=== PATIENT | female | born 1950 | race Caucasian/White ===

== ENCOUNTER 2017-04-17 08:37 | Inpatient (IN) | payer OTHER ==
--- NOTE | 2017-04-17 08:42 | EDPHY ---
H & P Time Seen by Provider: 04/17/17 08:42 HPI/ROS: Chief complaint. Stroke activation HPI. 66-year-old female here by EMS with a stroke activation. Affect approximately 1 hr ago the patient began have some increased confusion and maybe some repetitive questioning. She has tingling to the right arm. EMS felt that she had arm weakness. No headache, change in her vision, chest discomfort, shortness of breath, abdominal pain. No symptoms on the left side. She has had tingling to the right upper extremity for more than 1 year. ROS Constitutional. no fever/chills, no weakness Eyes. no problems with vision ENT. no sore throat, no nasal drainage Cardiovascular. no chest pain Respiratory. no shortness of breath, no cough Abdominal. no abdominal pain, no nausea/vomiting, no diarrhea . no problems urinating MS. no calf pain/swelling, no neck/back pain, no joint pain Skin. no rash Lymph. no swollen glands Neuro. Tingling right now arm and some word-finding difficulty Past Medical/Surgical History: Patient denies past medical history Social History: Single, nonsmoker, no alcohol Physical Exam: General Appearance: Alert well-developed female mild distress vital signs show initial blood pressure of approximately 230/130 Eyes: Pupils equal and round no pallor or injection. ENT, Mouth: Mucous membranes are moist. Respiratory: There are no retractions, lungs are clear to auscultation. Cardiovascular: Regular rate and rhythm. Gastrointestinal: Abdomen is soft and nontender, no masses, bowel sounds normal. Neurological: Awake and alert, sensory and motor exams grossly normal. Speech is normal. Cranial nerves are normal. There is no pronator drift. Finger-to- nose and [id number] are intact bilaterally Skin: Warm and dry, no rashes. Musculoskeletal: Neck is supple nontender. Extremities symmetrical, full range of motion. Psychiatric: Patient is oriented X 3, there is no agitation. Constitutional: Initial Vital Signs Temperature (C) 36.8 C 04/17/17 08:37 Heart Rate 90 04/17/17 08:37 Respiratory Rate 16 04/17/17 08:37 Blood Pressure 230/135 H 04/17/17 08:37 O2 Sat (%) 91 L 04/17/17 08:37 O2 Delivery Mode Room Air Allergies/Adverse Reactions: No Known Allergies Allergy (Verified 04/17/17 10:17) Home Medications: Medication Instructions Recorded Excedrin Migraine Geltab 2 tab PO DAILY 04/17/17 Medical Decision Making - Diagnostics EKG Interpretation: EKG interpreted by me shows normal sinus rhythm normal interval. Left axis deviation. Right bundle and left anterior fascicular blocks. LVH by voltage. No significant ST elevation or depression. No arrhythmia. The rate is 68 Imaging Results: Imaging Impressions Chest X-Ray 04/17/17 08:40 Impression: Cardiomegaly, which has increased over the interval. Evidence of atherosclerotic change in the thoracic aorta. Head CT 04/17/17 08:40 Impression: 1. No significant intracranial abnormality seen. If symptoms worsen, additional imaging may be necessary. Findings discussed with Andrez Fields M.D. at 0846 hour, 04/17/2017. Noncontrast head shows no intracranial bleeding One-view chest x-ray shows cardiomegaly but no evidence for pneumonia or pneumothorax Subsequently the patient has angio studies of head and neck which showed no obstruction Procedures: IV normal saline, monitor ED Course/Re-evaluation: Patient is seen immediately by me. She has left on the stretcher and after my initial exam and history she is taken to CT On return the patient continues to be hypertensive. She is given labetalol IV 20 mg bolus and then a drip. Gradual and good resolution of her hypertension. I consulted and discussed the case with [facility]--Dr. Camp-- who also examined the patient using the robot. The feel no tPA at this point in time and recommend the further study of angiogram of head and neck. Serial exams the patient's symptoms are decreasing with her resolving blood pressure. She tells me now that she has also had continuing numbness and tingling to her right upper extremity for more than 1 year I consulted and discussed the case with Dr. Vu, hospitalist, who agrees to the admission Patient and I have discussed imaging and lab results. We discussed treatment plan including recommendation for admission. She expresses understanding and agreement Differential Diagnosis: Considered intracranial bleeding, TIA, CVA. This is likely more hypertensive crisis causing her symptoms. Symptoms are resolving as blood pressure is controlled Critical Care Time: Critical care time exclusive procedures 40 min - Data Points Laboratory Results: Laboratory Results 04/17/17 08:37 04/17/17 08:37 02/04/17/17 04/17/17 08:37 08:37 08:37 WBC 8.46 10^3/uL 10^3/uL (3.80-9.50) RBC 5.36 10^6/uL H 10^6/uL (4.18-5.33) Hgb 17.0 g/dL H g/dL (12.6-16.3) POC Hgb Hct 50.0 % H % (38.0-47.0) POC Hct MCV 93.3 fL fL (81.5-99.8) MCH 31.7 pg pg (27.9-34.1) MCHC 34.0 g/dL g/dL (32.4-36.7) RDW 12.7 % % (11.5-15.2) Plt Count 228 10^3/uL 10^3/uL (150-400) MPV 9.7 fL fL (8.7-11.7) Neut % (Auto) 72.3 % % (39.3-74.2) Lymph % (Auto) 17.7 % % (15.0-45.0) [place] % (Auto) 7.8 % % (4.5-13.0) Eos % (Auto) 0.8 % % (0.6-7.6) Baso % (Auto) 0.9 % % (0.3-1.7) Nucleat RBC Rel Count 0.0 % % (0.0-0.2) Absolute Neuts (auto) 6.11 10^3/uL 10^3/uL (1.70-6.50) Absolute Lymphs (auto) 1.50 10^3/uL 10^3/uL (1.00-3.00) Absolute Monos (auto) 0.66 10^3/uL 10^3/uL (0.30-0.80) Absolute Eos (auto) 0.07 10^3/uL 10^3/uL (0.03-0.40) Absolute Basos (auto) 0.08 10^3/uL 10^3/uL (0.02-0.10) Absolute Nucleated RBC 0.00 10^3/uL 10^3/uL (0-0.01) Immature Gran % 0.5 % % (0.0-1.1) Immature Gran # 0.04 10^3/uL 10^3/uL (0.00-0.10) PT 11.8 SEC L SEC (12.0-15.0) INR 0.85 (0.83-1.16) APTT 27.3 SEC SEC (23.0-38.0) POC Sodium Sodium 141 mEq/L mEq/L (135-145) POC Potassium Potassium 4.2 mEq/L mEq/L (3.5-5.2) POC Chloride Chloride 104 mEq/L mEq/L (97-110) Carbon Dioxide 23 mEq/l mEq/l (22-31) Anion Gap 14 mEq/L mEq/L (8-16) POC BUN BUN 16 mg/dL mg/dL (7-23) Creatinine 0.8 mg/dL mg/dL (0.6-1.0) POC Creatinine Estimated GFR > 60 Glucose 98 mg/dL mg/dL (70-100) POC Glucose Calcium 10.4 mg/dL mg/dL (8.5-10.4) Troponin I 0.048 ng/mL H ng/mL (0.000-0.034) 04/17/17 08:33 WBC RBC Hgb POC Hgb 17.7 gm/dL H gm/dL (12.6-16.3) Hct POC Hct 52 % H % (38-47) MCV MCH MCHC RDW Plt Count MPV Neut % (Auto) Lymph % (Auto) [place] % (Auto) Eos % (Auto) Baso % (Auto) Nucleat RBC Rel Count Absolute Neuts (auto) Absolute Lymphs (auto) Absolute Monos (auto) Absolute Eos (auto) Absolute Basos (auto) Absolute Nucleated RBC Immature Gran % Immature Gran # PT INR APTT POC Sodium 141 mEq/L mEq/L (135-145) Sodium POC Potassium 4.0 mEq/L mEq/L (3.3-5.0) Potassium POC Chloride 104 mEq/L mEq/L (97-110) Chloride Carbon Dioxide Anion Gap POC BUN 18 mg/dL mg/dL (7-23) BUN Creatinine POC Creatinine 0.9 mg/dL mg/dL (0.6-1.0) Estimated GFR Glucose POC Glucose 101 mg/dL H mg/dL (70-100) Calcium Troponin I Medications Given: Nicardipine/Sodium Chloride (Cardene 0.1 Mg/Ml (Premix)) 200 mls @ 0 mls/hr IV CONT ENA; Titrate PRN Reason: Protocol Stop: 10/14/17 12:29 Last Admin: 04/17/17 12:10 Dose: 200 mls Nicotine (Nicoderm Cq) 14 mg TD DAILY ENA Stop: 10/14/17 15:29 Last Admin: 04/17/17 15:24 Dose: 14 mg Discontinued Medications Aspirin (Aspirin) 324 mg PO EDNOW ONE Stop: 04/17/17 08:52 Last Admin: 04/17/17 09:31 Dose: 324 mg Labetalol HCl 200 mg/ Dextrose 200 mls @ 0 mls/hr IV CONT ENA; As Directed PRN Reason: Protocol Stop: 10/14/17 08:59 Last Admin: 04/17/17 10:01 Dose: 200 mls Labetalol HCl (Trandate Injection) 20 mg IVP EDNOW ONE Stop: 04/17/17 08:52 Last Admin: 04/17/17 09:13 Dose: 100 mg Lorazepam (Ativan Injection) 1 mg IV ONCE ONE Stop: 04/17/17 12:46 Last Admin: 04/17/17 13:56 Dose: 1 mg Point of Care Test Results: 04/17/17 08:33 POC Sodium 141 POC Potassium 4.0 POC Chloride 104 POC BUN 18 POC Creatinine 0.9 POC Glucose 101 H Departure - Departure Disposition: [facility] Acute Clinical Impression: Malignant hypertensive urgency Condition: Fair
[2017-04-17] MEDS ORDERED: LABETALOL HCL 5 MG/ML 20 ML MDV IVP ONE (08:51)
[2017-04-17] MEDS ORDERED: ASPIRIN 81 MG CHEWABLE TAB PO ONE (08:51)
[2017-04-17 08:58] LABS: PLATELET COUNT 228 10^3/uL (150-400)
[2017-04-17] MEDS ORDERED: LABETALOL HCL 200 MG in D5W 200 ML IV SCH (09:00)
[2017-04-17 09:11] LABS: INR 0.85 (0.83-1.16); PROTIME(PATIENT) 11.8 SEC (12.0-15.0)
--- NOTE | 2017-04-17 09:35 | CPEKG ---
Heart Rate: 68 RR Interval: 882 P-R Interval: 180 QRSD Interval: 128 QT Interval: 464 QTC Interval: 494 P [place]: 67 QRS [place]: -79 T Wave [place]: 53 EKG Severity - ABNORMAL ECG - EKG Impression: SINUS RHYTHM EKG Impression: PROBABLE LEFT ATRIAL ABNORMALITY EKG Impression: RBBB AND LAFB EKG Impression: LEFT VENTRICULAR HYPERTROPHY Electronically Signed By: Andrez Fields 17-Apr-2017 14:36:31
[2017-04-17] MEDS ORDERED: IOPAMIDOL (ISOVUE 370) 100 ML BTL IV ONE (09:37)
--- NOTE | 2017-04-17 11:50 | ASMTCMCOM ---
CM Note CM Note Notes: ED RN Torin requested this SW to call the pt's work to notify them of her admission. This SW spoke to Ritu oJhnson in human resources at [facility]. Ms. Johnson was informed of absence for today and tomorrow and she will notify the pt's cost estimating manager. DC plan TBD CM to follow. Date Signed: 04/17/2017 11:49 AM Electronically Signed By:Stuart Puentes LCSW
[2017-04-17] MEDS ORDERED: niCARdipine/NACL 200 ML IV SCH (12:30)
[2017-04-17] MEDS ORDERED: LORazepam 2 MG/ML INJ IV ONE (12:45)
[2017-04-17] MEDS ORDERED: LABETALOL HCL 5 MG/ML 20 ML MDV IVP PRN (12:53)
[2017-04-17] MEDS ORDERED: traMADol 50 MG TAB PO PRN (12:57)
--- NOTE | 2017-04-17 13:15 | ECHO ---
[email or web address] [address] [address] Main: [phone] Fax: Transthoracic Echocardiogram Name: DEL GIRALDO MR#: [id number] Study Date: 04/17/2017 Study Time: 11:40 AM Date of : 1950 Age: 66 year(s) Height: 175.3 cm (69 in.) Weight: 63.5 kg (140 lb.) BSA: 1.78 m2 Gender: Female Examination: Echo with Agitated Saline Indication: Stroke Alert Image Quality: Contrast: Requested by: Lorie Vu BP: 179 mmHg/103 mmHg Heart Rate: Rhythm: Indication: Stroke Alert Procedure Staff Knitting Machine Operator: Jose Alfredo Lovelace RDCS Reading Physician: James Kan MD Requesting Provider: Conclusions: Severe concentric LV hypertrophy. EF is 68 %. Diastolic dysfunction is present. . The left atrium is severely dilated. An agitated saline study was performed and was negative for intracardiac shunting. Mild mitral valve regurgitation is present. 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 Moderate aortic valve regurgitation is present. The pulmonary artery pressure is mild to moderately increased. Measurements: Chambers Valvular Assessment AV/MV Valvular Assessment TV/PV Normal Normal Normal Name Value Range Name Value Range Name Value Range IVSd (2D): 1.6 cm (0.6 cm-1.1 AV meanP mmHg ( - ) TR Vmax: 3.12 mm/s ( - ) cm) LVOT Vmax: 1.11 m/s (0.7 m/s-1.1 TR PGmax: 39 mmHg ( - ) LVDd (2D): 4.0 cm (3.9 cm-5.3 m/s) syst. PAP: 49 mmHg ( - ) cm) LIANG (VTI): 2.3 cm ( - ) PV Vmax: 1.09 m/s (0.6 m/s-0.9 LVDs (2D): 2.5 cm (2.1 cm-4 MV E Vmax: 1.14 m/s ( - ) m/s) cm) MV A Vmax: 0.96 m/s ( - ) PV PGmax: 5 mmHg ( - ) LVPWd (2D): 1.5 cm ( - ) MV E/A: 1.19 ( - ) LVOTd 2.0 cm 2.0 cm mm MV meanP mmHg ( - ) LVEF (2D): 68 (>=54 %) MVA (Vmax): 1.8 m/s ( - ) Continued Measurements: Chambers Valvular Assessment AV/MV Valvular Assessment TV/PV Name Value Name Value Name Value LADs Lon.4 cm MV Annulus: 4.3 cm CVP (est.): 10 mmHg Patient: DEL GIRALDO Study Date: 04/17/2017 Page 1 of 2 11:40 AM LA Area: 33.0 cm2 MV E/E' Septal: 33.40 LA Volume: 99 ml MV E/E' Lateral: 24.40 LA Volume Index: 55.6 ml/m2 MV VTI: 45.90 cm MR ERO: 0.190 cm2 MR PISA radius: 7 mm MR Reg. Volume: 35 ml MR Reg. Fraction: 5 % AR Vmax: 5.22 cm/s AR ERO: 0.230 cm2 AR PISA radius: 0.7 cm AR Reg. Volume: 66.0 ml AR Reg. Fraction: 80 % AR VTI: 289.0 cm Findings: Left Ventricle: Normal size left ventricle. Severe concentric LV hypertrophy. Normal global systolic LV function. EF is 68 %. No regional wall motion abnormality. Diastolic dysfunction is present. . No LVOT obstruction. Right Ventricle: Normal size right ventricle. Left Atrium: The left atrium is severely dilated. An agitated saline study was performed and was negative for intracardiac shunting. The LA index is 72.5 ml/m2. Right Atrium: The right atrium is moderately dilated. Mitral Valve: Mild mitral valve regurgitation is present. 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 Aortic Valve: The aortic valve is tri-leaflet. Mild aortic cusp calcification is noted. Moderate aortic valve regurgitation is present. Tricuspid Valve: Mild tricuspid regurgitation is present. The pulmonary artery pressure is mild to moderately increased. Pulmonic Valve: The pulmonic valve is normal in appearance and function. Aorta: The aorta is normal. Pericardium: Trivial pericardial effusion. (No Signature Object) Patient: DEL GIRALDO Study Date: 04/17/2017 Page 2 of 2 11:40 AM [id number]
--- NOTE | 2017-04-17 13:34 | GHP ---
[f rep st] HISTORY AND PHYSICAL DATE OF ADMISSION: 04/17/2017 CHIEF COMPLAINT: Right eye blurriness. HISTORY OF PRESENT ILLNESS: The patient is a 66-year-old female who has not seen a primary care doct or for many years. Last time she had her blood pressure checked, however, it was very low. She now presents to the hospital after developing acute onset of right eye blurriness. She went to work this morning at 5:15 a.m. per her usual routine. At 5:45 a.m., she noticed her right eye was blurry. Hortencia chavarria describes it appearing like a black and white kaleidoscope. She persisted through her daily activi ties at work and a couple hours later developed severe dizziness and shortness of breath which was no ticed by her coworkers, and she was brought to the nurse's station at work. EMS was called. She renetta cribes acute memory difficulties more than any true aphasia. She feels mostly back to normal now wit h minimal ongoing symptoms including resolution of the right eye blurriness. She does describe new r ight leg numbness for the last 1 week, and also about 1 year ago her right hand went numb for unclear reasons, and she never sought evaluation. Both the right leg and right hand weakness persist at thi s time. PAST MEDICAL HISTORY: Negative. PAST SURGICAL HISTORY: Tubal ligation, tonsillectomy. MEDICATIONS: She takes 2 Excedrin every morning for heart health. She denies a history of headaches . ALLERGIES: No known drug allergies. SOCIAL HISTORY: She smokes a half a pack per day. She drinks 3 shots of vodka every day after work. She lives alone. REVIEW OF SYSTEMS: Complete review of systems obtained. Review of systems is negative regarding con stitutional, HEENT, GI, pulmonary, cardiovascular, , hematology, skin, musculoskeletal, endocrine, psych except for positives and negatives as noted in HPI. FAMILY HISTORY: Her father of colon cancer at age 85. She has not had a colonoscopy. Mom of old age. PHYSICAL EXAMINATION: GENERAL: Well-developed, well-nourished female, in no acute distress. VITAL SIGNS: Temperature 36.8, pulse 70, blood pressure 230/135, saturating 91% on room air. EYES: Lizbeth l conjunctivae. Pupils react to light. ENT: Normal ears and nose. Hearing intact. She has very p oor dentition. Oropharynx moist. NECK: Trachea midline. No thyromegaly. CHEST: Normal respirato ry effort. Lungs clear to auscultation bilaterally. CARDIOVASCULAR: Regular rhythm. No murmur. N o lower extremity edema. ABDOMEN: Soft, nontender. No hepatosplenomegaly. SKIN: Warm, dry, intac t. No rash. MUSCULOSKELETAL: No cyanosis or clubbing. Strength 5/5 upper and lower extremities. NEURO: Cranial nerves intact. Decreased sensation to the right upper and right lower extremities. PSYCH: Alert and oriented x3. Normal affect. Normal judgment. Normal memory. Her speech is lizbeth l at this time. LABORATORY DATA: White count 8.46, hematocrit 50.0, platelets 228. Sodium 141, potassium 4.2, chlor bereket 104, bicarb 23, BUN 16, creatinine 0.8, glucose 98. Troponin 0.048. INR 0.85. EKG reviewed by me. My personal interpretation is normal sinus rhythm with LVH. Chest x-ray shows cardiomegaly. Head CT is negative. CT angiogram of the head and neck is negative. ASSESSMENT/PLAN: 1. Transient ischemic attack versus stroke versus hypertensive encephalopathy. Will check an MRI of the brain. If it is positive for stroke, that would indicate she needs a higher blood pressure goal acutely. Will also check an echocardiogram and lipid panel. Continue daily aspirin and ask Neurolo gy to see her in the morning. 2. Hypertensive urgency. As above, we will better understand her acute blood pressure goals once we understand her status regarding acute stroke. She was put on IV labetalol drip in the emergency [facility] m, which is now off. Blood pressure is adequate at this time. Will initiate further IV antihyperten sives per the stroke protocol with higher blood pressure goals; however, if we get a negative MRI for stroke we can be more aggressive regarding lowering her blood pressure over the next 24-48 hours. 3. Tobacco dependence. Will place on nicotine patch. 4. Troponin elevation. This is very mild. This is clearly due to strain from her uncontrolled hype rtension. CODE STATUS: Full. ADMISSION STATUS: I will admit to inpatient as she is medically complex. Anticipate greater than 2 midnights required for stabilization. DVT PROPHYLAXIS: She is moderate risk. Will place on subcu Lovenox. /[id number]/MODL
--- NOTE | 2017-04-17 13:58 | PDMN ---
Medical Necessity Medical necessity: Patient meets inpatient criteria per physician note and [facility] [place] M -197 Hypertension (severe hypertension: B/P 230/135; acute onset R eye blurriness, followed by severe dizziness and shortness of breath; persistent numbness of R exts; stroke alerted called; awaiting MRI results to determine poss TIA vs CVA vs hypertensive encephalopathy; started on Cardene IV gtt; anticipated LOS > 2 midnights for ongoing management of hypertension.)
[2017-04-17] MEDS: NICOTINE 14 MG/24 HR PATCH TD SCH (15:24)
[2017-04-17] MEDS: CLOPIDOGREL BISULFATE 75 MG TAB PO SCH (16:55)
[2017-04-17] MEDS ORDERED: LORazepam 1 MG TAB PO PRN (17:02)
--- NOTE | 2017-04-17 20:44 | CPEKG ---
Heart Rate: 65 RR Interval: 923 P-R Interval: 160 QRSD Interval: 132 QT Interval: 476 QTC Interval: 495 P [place]: 62 QRS [place]: -79 T Wave [place]: 64 EKG Severity - ABNORMAL ECG - EKG Impression: SINUS RHYTHM EKG Impression: PROBABLE LEFT ATRIAL ABNORMALITY EKG Impression: RBBB AND LAFB EKG Impression: LEFT VENTRICULAR HYPERTROPHY Electronically Signed By: Nate Babb 18-Apr-2017 07:26:44
--- NOTE | 2017-04-17 21:41 | GCON ---
[f rep st] CONSULTATION NEUROLOGY CONSULTATION DATE OF CONSULTATION: 04/17/2017 REFERRING PHYSICIAN: Lorie Vu MD CHIEF COMPLAINT: Stroke alert. HISTORY OF PRESENT ILLNESS: The patient is a very pleasant 66-year-old lady who has not seen a doctor in many years by her own report. She takes a baby aspirin daily, but otherwise takes no prescription medications, and does not have regular medical care. Her mother has hypertension. She has had chronic right arm numbness for a year and may have had some additional numbness in her right lower extremity in the last few days. She came in today for headache, feeling confused, along with a general malaise. There was no chest pain. No acute focal symptoms she complained about, but EMS felt like there was some focality when they evaluated her. Therefore, stroke alert was called. The patient was found to have a blood pressure of 230/130 in the ER in a hypertensive crisis. Head CT without contrast was negative. CT of the head and neck showed no large or a small vessel intraluminal thrombosis or acute changes. There is no significant carotid disease. MRI brain revealed 3 tiny, acute, diffusion-weighted infarcts in the subcortical right parietal matter and 1 each in the cerebellar hemispheres. Her blood pressure is coming down now in the ICU with medications. She complains of no acute changes or symptoms now. REVIEW OF SYSTEMS: A 10-point review of systems was done; only pertinent to the HPI. PAST MEDICAL HISTORY, SOCIAL HISTORY, FAMILY HISTORY, ALLERGIES: Please see Dr. Vu's H and P. PHYSICAL EXAM: VITAL SIGNS: Blood pressure 156/90, temperature is 36.7, pulse is 60s and regular. GENERAL: In no acute distress. A very pleasant lady. HEENT: Poor dentition. NEUROLOGICAL EXAMINATION: HIGHER MENTAL FUNCTION: She is awake and alert. She is lucid. She names 5/5, follows commands 5/5,and repeats 5/5. No aphasia. CRANIAL NERVES: Exam of 2 through 7 and 12 is normal. MOTOR: Normal strength throughout. SENSORY: Subjectively normal to light touch in all 4 extremities. IMPRESSION AND PLAN: 1. Hypertensive emergency. 2. Diffusion-weighted abnormalities on MRI brain (stroke) The differential diagnosis for the patient's 3 tiny, acute strokes include a cardioembolic shower versus end-organ damage from a hypertensive emergency. I discussed this at length with the patient and the hospital team. Going forward , I recommend a smooth reduction of blood pressure while here in the hospital. We will treat if her systolics go above 180 this evening, and treat further tomorrow. I have switched her from aspirin to Plavix 75 mg daily. We discussed potential risks, benefits and alternatives of Plavix therapy including bleeding and bruising. The patient had an echocardiogram, which was fairly abnormal, showing severe concentric left ventricular hypertrophy and severe dilation of the left atrium and moderate dilation of the right atrium. She denies a previous history of atrial fibrillation, but she does not have regular medical care, as mentioned above. Therefore, considering the primary stroke mechanisms, we will control blood pressure, have her on at anti-platelet therapy and statin therapy. Further, we will screen her for atrial fibrillation while on telemetry in the hospital. If we do not see paroxysmal atrial fibrillation here in the hospital, then I would recommend outpatient monitoring for paroxysmal atrial fibrillation with either a 30-day event monitor versus implantable cardiac cath technologist. All of these recommendations were discussed at length. Seventy total minutes floor time reviewing testing, imaging, coordination of care and direct counseling with the patient. We also discussed the possible discussed the patient's alcohol intake and the recommendation to observe for any withdrawal symptoms. Thank you for this consultation. /[id number]/MODL MTDD
[2017-04-18 04:38] LABS: PLATELET COUNT 147 10^3/uL (150-400)
[2017-04-18] MEDS: THIAMINE HCL 500 MG in NS 500 ML IV SCH (08:32)
[2017-04-18] MEDS: NICOTINE 14 MG/24 HR PATCH TD SCH (08:32)
[2017-04-18] MEDS: CLOPIDOGREL BISULFATE 75 MG TAB PO SCH (08:32)
[2017-04-18] MEDS: ENOXAPARIN 40 MG/0.4 ML SYR SC SCH (08:32)
[2017-04-18] MEDS: LISINOPRIL 10 MG TAB PO SCH ×2 (08:57→20:05)
[2017-04-18] MEDS ORDERED: ASPIRIN 325 MG TAB PO SCH (09:00)
[2017-04-18] MEDS ORDERED: NICOTINE 14 MG/24 HR PATCH TD SCH (09:00)
[2017-04-18] MEDS ORDERED: LISINOPRIL 10 MG TAB PO SCH (09:00)
--- NOTE | 2017-04-18 11:02 | NEUROPROG ---
Assessment: 1. Hypertensive emergency 2. three tiny, acute cerebral infarctions 3. Chronic right distal upper extremity numbness, likely median neuropathy at the wrist The patient has done well overnight. Her blood pressures are staying within parameters. She will be further treated today for her high blood pressure. Today we discussed her chronic right upper extremity numbness and her previous diagnosis of carpal tunnel syndrome. Her current exam is consistent with chronic, moderately severe carpal tunnel syndrome on the right. I counseled her as such. This is a chronic problem present greater than 1 year. In regards to her hypertensive emergency and small acute strokes on MRI brain, we discussed the differential diagnosis is hypertensive emergency with end- organ dysfunction (strokes) versus cardioembolic. There has been no atrial fibrillation overnight on telemetry according to Nursing. She understands and appreciate my counseling. Going forward, I recommend the followin. When the patient discharges home she should be on antihypertensive medication , Plavix 75 mg daily and statin medication daily. 2. She should have close PCP follow-up to manage her multiple vascular comorbidities and encouraged her again regarding smoking cessation and monitor her alcohol intake. She is agreeable. 3. I understand cardiology will be seeing years inpatient. Certainly based on her abnormal echocardiogram, she will need some type of prolonged monitoring to screen for paroxysmal atrial fibrillation. I defer to my colleagues in Cardiology whether they would like to begin with a 30 day event monitor versus an implantable director non profit ([employer]) 4. We will follow up with the patient in 1 month to review her neurovascular care and her carpal tunnel syndrome. We can order an EMG/nerve conduction studies at that time. No further recommendations. 35 total minutes floor time; reviewing history, labs , direct counseling and coordination of care. We will continue to follow the patient p.r.n. Please do not hesitate to call if there are any questions or changes in neurologic status with this very pleasant patient. Thank you for this consultation. Subjective: No new symptoms Objective: Vital Signs Temp Pulse Resp BP Pulse Ox 36.8 C 64 20 175/114 H 94 04/18/17 07:54 04/18/17 07:54 04/18/17 07:54 04/18/17 07:54 04/18/17 07:54 Laboratory Results 04/18/17 04:10 04/18/17 04:10 04/17/17 04/18/17 04/19/17 05:59 05:59 05:59 Intake Total 1000 500 Balance 1000 500 PT 11.8 SEC (12.0-15.0) L 04/17/17 08:37 INR 0.85 (0.83-1.16) 04/17/17 08:37 Awake and alert No aphasia Positive Phalen sign on the right Allergies/Adverse Reactions: No Known Allergies Allergy (Verified 04/17/17 10:17)
[2017-04-18] MEDS: hydrALAZINE 20 MG/ML VIAL IVP PRN ×2 (11:28→20:04)
--- NOTE | 2017-04-18 12:59 | GCON ---
[f rep st] CONSULTATION CARDIOVASCULAR CONSULTATION CHIEF COMPLAINT: Hypertension. She actually came to the hospital because her chief complaint at the time was that she was having a h adrienne time breathing. She was at work on and she had felt a little short of breath, but she g ot to work and she developed some chest tightness and it felt kind of like a cinch around her chest. She felt some very hard breathing, short of breath, and then she had trouble with her vision, became very blurry. She became dizzy and she felt like she could not stand up she felt so weak. They call ed 911. She was brought to the hospital and found to have a stroke and hypertension. She is feeling much, much better now. She does not have any history of hemoptysis, cough, sputum pro duction. Normally she does not have dyspnea on exertion. She does not and has not had fever, chills , or cough. She has not been having nausea, vomiting, diarrhea, or constipation. She has no history of trauma to the head, neck, or chest. She has no history of rheumatic disease, claudication, or ce rebrovascular disease. No history of atrial arrhythmias, atrial fibrillation. No history of DVT or pulmonary embolism. She denies any recent upper respiratory tract symptoms, rashes, arthralgias, hot swollen joints. She tries to be active, mostly through work, and stays fit and watches what she eat s. She came in and was found to have hypertension and had never been diagnosed with that before. CARDIAC RISK FACTORS: Clearly positive for hypertension. Her cardiac risk factors are positive for smoking. Cardiac risk factors negative for diabetes mellitus, hyperuricemia, obesity, hyperlipidemia , known coronary disease, or family history of premature coronary artery disease. MEDICATIONS: At home were Excedrin for her heart. ALLERGIES: None. SOCIAL HISTORY: She was born in [place], [place], in [place] area [place]. She grew up there until she was 6 years old and then moved to [place] and started floating around [place] or out of [place]. She lives in [place] now. She is . She has 1 daughter who is healthy. 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 She does smoke. She does not drink significant amounts of alcohol. She h as had a period in her life when she stopped smoking for 20 years. She lives alone. She really does not exercise very much, but she feels like she is getting some exercise regularly at work. FAMILY HISTORY: There is no family history of premature coronary disease. There is no history of un explained sudden at a young age. PHYSICAL EXAM: VITALS: Blood pressure 136/121 and I just was with the patient. It is down to 140/9 7. She received some hydralazine. Her heart rate is regular and 64. Respiratory rate is 14. She i s sitting up comfortably in a hospital chair. HEENT: Pupils are equal and reactive. Mucous membran es and mouth moist. NECK: Supple. CARDIOVASCULAR: S1, S2. S4 is present. Soft systolic flow mur mur at left sternal border. BACK: CVA is no tenderness. PULMONARY: Rhonchi bilaterally. Increase d AP diameter. Prolonged expiration. ABDOMEN: Bowel sounds are normal. No organomegaly. No tende rness. EXTREMITIES: No edema, inflammation, or ulceration. NEUROLOGIC: Cranial nerves 2-12 seem t o be grossly normal. Motor and sensory: She is a little bit weak and tired and I did not get up and walk her. DATA: Her EKG shows an intraventricular conduction delay and left ventricular hypertrophy, nonspecif ic ST-T changes, and left anterior fascicular block. She does not meet strict criteria for right bun dle right on this EKG. She had a chest x-ray which shows cardiomegaly, evidence of atherosclerotic c hange in the thoracic aorta. The CT angiogram of the neck showed the aortic arch is of normal contou r. Small amount of partially calcified plaque in the left subclavian artery. Stenosis less than 30% . The great vessels off the aortic arch are otherwise relatively normal with some tortuosity and mil d plaque as noted on the report. CT angiogram an[place] of [place] showed distal ICA at the base of the brain is normal appearance bilaterally with no plaque, normal branching. Vertebrobasilar system demo nstrates normal contrast. Imaging of the brain demonstrates no evidence of intracranial hemorrhage o r subdural collection, vascular malformation, or evidence of cerebral infarction. Her echocardiograp hic study showed diastolic dysfunction, very large left atrium. Agitated saline study was negative f or shunt, mild mitral regurgitation, severe mitral annular calcification without mitral stenosis. Th e patient has mild tricuspid regurgitation with elevated pulmonary artery pressure without a number g iven on this study. The patient had a trivial pericardial effusion. ASSESSMENT AND PLAN: 1. Chest discomfort. 2. Elevated troponin. 3. Cerebrovascular accident. 4. Hypertension. 5. Chronic obstructive pulmonary disease. 6. Greater than 50 pack-year smoking history. The patient had an episode of chest tightness where she felt like she had a cinch around her chest a month before she came to the hospital this time. She felt the same kind of sensation when she was mallory ving trouble breathing before she came in. On both occasions, it could be ischemia due to the fact t hat she had such major hypertension and demand mismatch. However, with her smoking and hypertension, she is certainly at risk for coronary artery disease, and so what we are going to do a nuclear stres s test before she leaves. Her blood pressure has been high today, so we will give it at least and maybe do it Thursday rather than do a tomorrow. If we need to, we can wait until Thursday. I do not think she has enough syndrome that makes it prudent to proceed right to angiography. It woul d be much better to do angiography if we document that she needs it with an abnormal study. I have talked to her extensively about smoking and told her that she will cut down her risk of furthe r myocardial infarction by 50% just by quitting smoking within 24 hours. She is very eager not to re sume smoking and she has obviously not smoked since she came to the hospital. She does not want any other medical aids to help her with it. She has quit before and she will just plan to believe that s he has quit now. I think she is very motivated because of how difficult it has been to be in the hos pital and how frightening it is to be told she might have problem causing strokes. Her blood pressur e is coming under control right now and we will watch that carefully. We will also check her lipids and see how they are, and we can do that as an outpatient. I have answered all her questions and holly ked to her doctors about this. We will not plan on doing a stress test tomorrow, but rather on , assuming she is still making progress. All her questions have been answered. /[id number]/MODL
--- NOTE | 2017-04-18 13:54 | GCON ---
[f rep st] CONSULTATION PULMONARY/CRITICAL CARE CONSULTATION. DATE OF CONSULTATION: 04/18/2017 REFERRING PHYSICIAN: Lorie Vu MD REASON FOR CONSULT: Evaluation and management of hypertension, CVA, and elevated troponins. HISTORY: The patient is a 66-year-old woman who was in her usual state of good health when she woke up yesterday for work. Shortly after waking up, she noticed that her right vision was blurry. This was then followed by dizziness and shortness of breath. She was brought to a nurse's station at work , and then EMS was called. By the time she was brought to the hospital, her symptoms had improved. She currently denies any vision problems, nausea/vomiting, dizziness, or dyspnea. PAST MEDICAL HISTORY: Unremarkable. MEDICATIONS: The patient takes aspirin every day. She has been started on clopidogrel, Lovenox, lis inopril, and p.r.n. hydralazine here in the hospital. She is also on a nicotine patch, tramadol p.r. n., and thiamine. ALLERGIES: None. SOCIAL HISTORY: The patient smokes a half a pack of cigarettes a day and drinks 3 shots of vodka mary jo ry day. She lives alone. FAMILY HISTORY: Unremarkable. REVIEW OF SYSTEMS: A 10-point review of systems adds nothing to the history of present illness. PHYSICAL EXAMINATION: GENERAL: The patient is awake, alert, and in no acute distress. VITAL SIGNS: Blood pressure is 170/100 with a heart rate of 64. She is afebrile. Oxygen saturations are 95% on room air. HEENT: Normocephalic and atraumatic. No icterus. NECK: No JVD. Trachea is midline. CHEST: Clear to auscultation. CARDIAC: Regular rate and rhythm without murmur. ABDOMEN: Soft, no ntender. Bowel sounds are present. NEURO: The patient is awake and alert. She has no gross motor or sensory deficits, and no visual field deficits. DATA REVIEWED: Hemoglobin is 12.5, down from 17.0. Her platelet count is 147. Chemistry group is u nremarkable. Troponin started out at 0.048, yunior to 2.27, and is now down to 1.87. A chest x-ray sh ows cardiomegaly. Images reviewed by me. An echocardiogram shows an ejection fraction of 68% with d iastolic dysfunction. There is no intracardiac shunt on bubble testing. The estimated right ventric ular systolic pressure is 49 mmHg. An MRI of the brain shows 3 tiny infarcts without associated hemo rrhage. ASSESSMENT: 1. Acute cerebrovascular accident. These are small. Cardioembolic is a possibility. No source has been identified. The patient's symptoms have now resolved. 2. Hypertension emergency. The patient's systolic blood pressure was 230 mmHg when she came into [facility]. Her systolic blood pressure has now been lowered down to 170. Per Neurology, this is an appropriate systolic blood pressure range, perhaps slightly lower. This has been achieved with akbar nopril. Hydralazine can be given p.r.n. 3. Elevated troponin. This is likely due to some demand ischemia related to her severe hypertension . However, she has a significant smoking history and is at risk for coronary artery disease. 4. Pulmonary hypertension. The patient had moderate pulmonary hypertension based on her echocardiog bart. This was done at a time when the patient had systemic hypertension. Her pulmonary pressures ma y be lower once her systemic hypertension is treated. 5. Tobacco abuse. RECOMMENDATIONS: 1. Continue close monitoring of blood pressure with lisinopril and p.r.n. hydralazine. Goal systoli c blood pressures in the 160-170 range right now, and this will gradually be lowered. 2. Agree with a stress test as per Dr. Frost. 3. Continue nicotine patch. The patient was encouraged to stop smoking. 4. Followup on pulmonary hypertension with repeat echocardiogram, once the patient's hypertension mallory s been addressed. If the patient continues to have pulmonary hypertension, overnight oximetry can be checked, with further evaluation, including pulmonary function tests, if she has evidence of hypoxem ia. /[id number]/MODL
--- NOTE | 2017-04-18 15:09 | HOSPPROG ---
Hospitalist Progress Note Assessment/Plan: * HTN emergency -acute CVA and troponin elevation signifies end organ damage -oral lisinopril started -reduce BP 20% per day - current goal tx SBP > 160 * Acute CVA -per neurology less likely embolic - suspect pattern c/w severe HTN -Plavix -no evidence afib - will need outpatient cardiac monitoring * Non-STEMI -likely strain due to severe HTN -d/w Dr. Fisher - stress test prior to discharge * Carpel tunnel -outpatient follow-up with neurology * Pulmonary HTN -may be due to severe HTN -recheck ECHO when BP controlled -further w/u if pulm HTN persists * Tobacco dependence -cessation advised Subjective: no complaints. all neuro sx resolved Objective: Vital Signs Temp Pulse Resp BP Pulse Ox 36.8 C 64 16 136/121 H 99 04/18/17 07:54 04/18/17 12:03 04/18/17 12:03 04/18/17 12:03 04/18/17 12:03 Laboratory Results 04/18/17 04:10 04/18/17 04:10 04/17/17 04/18/17 04/19/17 05:59 05:59 05:59 Intake Total 1000 1005 Balance 1000 1005 PT 11.8 SEC (12.0-15.0) L 04/17/17 08:37 INR 0.85 (0.83-1.16) 04/17/17 08:37 d/w Dr. rodriguez and dr. fisher as above tele - NSR ECHO - normal EF, + mild/mod pulm HTN - Physical Exam Constitutional: no apparent distress, appears nourished, not in pain Cardiovascular: regular rate and rhythym, no murmur, rub, or gallop Respiratory: no respiratory distress, no rales or rhonchi, clear to auscultation Gastrointestinal: normoactive bowel sounds, soft, non-tender abdomen, no palpable masses Skin: no rashes or abrasions, no fluctuance, no induration Neurologic: AAOx3, sensation intact bilaterally Psychiatric: interacting appropriately, not anxious, not encephalopathic, thought process linear ICD10 Worksheet Patient Problems: Problems Problem Status Onset Malignant hypertensive urgency Acute
--- NOTE | 2017-04-18 15:57 | ASMTCMCOM ---
CM Note CM Note Notes: Pt was admitted with a hypertensive emergency, 3 tiny infarcts found. PT/OT/SLT have cleared. Pt admits to drinking 3 shots of vodka daily and smokes cigarettes. Anticipate d/c with no CM needs but perhaps would benefit from etoh and tobacco information. Date Signed: 04/18/2017 03:56 PM Electronically Signed By:OZ Pelaez
[2017-04-18] MEDS: ACETAMINOPHEN 325 MG TAB PO PRN (18:07)
[2017-04-19] MEDS: hydrALAZINE 20 MG/ML VIAL IVP PRN ×2 (02:08→23:58)
[2017-04-19] MEDS: ONDANSETRON 4 MG/2 ML VIAL IVP PRN ×2 (03:32→08:55)
[2017-04-19 06:06] LABS: PLATELET COUNT 144 10^3/uL (150-400)
[2017-04-19] MEDS: THIAMINE HCL 500 MG in NS 500 ML IV SCH (09:57)
[2017-04-19] MEDS: NICOTINE 14 MG/24 HR PATCH TD SCH (09:59)
[2017-04-19] MEDS: LISINOPRIL 10 MG TAB PO SCH ×2 (10:00→21:05)
[2017-04-19] MEDS: ATORVASTATIN CALCIUM 10 MG TAB PO SCH (10:00)
[2017-04-19] MEDS: CLOPIDOGREL BISULFATE 75 MG TAB PO SCH (10:01)
--- NOTE | 2017-04-19 10:08 | SOAPPROG ---
SOAP Progress Note Assessment/Plan: Assessment: 1. Hypertension 2. CVA 3. Chest tightness 4. Greater than 40 pack-year smoking history 5. COPD She he has had no more chest tightness. She feels nauseated today and does not feel well. My plan is to do a pharmacologic nuclear stress test before she is discharged if Neurology approved at that. If they are concerned we can't do it as an outpatient. Blood pressure still high today so we with thinking about doing it on Thursday. Will see how she feels with her nausea and how that involves. She is not having an acute coronary event right now. She is not having heart failure right now Her blood pressure is not yet controlled. Neurologically she is improving. I have answered all her questions and reviewed her case with the nurse. I will not be relationship consultant today but my partner Dr. Hernández is Plan: 04/19/17 10:08 Subjective: She feels nauseated today She has no new focal neurologic issues She has no fevers or chills No chest pain or chest tightness. Objective: Vital Signs Temp Pulse Resp BP Pulse Ox 36.4 C 62 18 177/110 H 86 L 04/19/17 08:45 04/19/17 09:00 04/19/17 09:00 04/19/17 10:00 04/19/17 09:00 Laboratory Results 04/19/17 05:50 04/19/17 05:50 04/18/17 04/19/17 04/20/17 05:59 05:59 05:59 Intake Total 1000 2605 Output Total 30 Balance 1000 2575 PT 11.8 SEC (12.0-15.0) L 04/17/17 08:37 INR 0.85 (0.83-1.16) 04/17/17 08:37 Physical Exam - Physical Exam General Appearance: no apparent distress Respiratory: decreased breath sounds, rhonchi, prolonged expiration Cardiac/Chest: regular rate, rhythm, systolic murmur Abdomen: non-tender, soft, No organomegaly Skin: pallor Neuro/Psych: alert, normal mood/affect ICD10 Worksheet Patient Problems: Problems Problem Status Onset Malignant hypertensive urgency Acute
[2017-04-19] MEDS: ENOXAPARIN 40 MG/0.4 ML SYR SC SCH (10:54)
--- NOTE | 2017-04-19 12:20 | HOSPPROG ---
Hospitalist Progress Note Assessment/Plan: * HTN emergency/crisis -acute CVA and troponin elevation signifies end organ damage -oral lisinopril started - will increase -reduce BP 20% per day - patient symptomatic - ? too rapid decline -continue IV hydralazine prn * Acute CVA -per neurology less likely embolic - suspect pattern c/w severe HTN -Plavix -no evidence afib - will need outpatient cardiac monitoring * Non-STEMI -likely strain due to severe HTN -stress test tomorrow if BP adequately controlled * Carpel tunnel -outpatient follow-up with neurology * Pulmonary HTN -may be due to severe HTN -recheck ECHO when BP controlled -further w/u if pulm HTN persists * Tobacco dependence -cessation advised Subjective: Severe headache - new this am - with N/V - feels terrible Objective: Vital Signs Temp Pulse Resp BP Pulse Ox 36.4 C 62 18 177/110 H 86 L 04/19/17 08:45 04/19/17 09:00 04/19/17 09:00 04/19/17 10:00 04/19/17 09:00 Laboratory Results 04/19/17 05:50 04/19/17 05:50 04/18/17 04/19/17 04/20/17 05:59 05:59 05:59 Intake Total 1000 2605 Output Total 30 Balance 1000 2575 PT 11.8 SEC (12.0-15.0) L 04/17/17 08:37 INR 0.85 (0.83-1.16) 04/17/17 08:[address] negative tele - NSR IV hydralazine dosed last time at 2:00 am - Physical Exam Constitutional: no apparent distress, appears nourished, not in pain, uncomfortable Cardiovascular: regular rate and rhythym, no murmur, rub, or gallop Respiratory: no respiratory distress, no rales or rhonchi, clear to auscultation Gastrointestinal: normoactive bowel sounds, soft, non-tender abdomen, no palpable masses Skin: no rashes or abrasions, no fluctuance, no induration Neurologic: AAOx3, sensation intact bilaterally Psychiatric: interacting appropriately, not anxious, not encephalopathic, thought process linear ICD10 Worksheet Patient Problems: Problems Problem Status Onset Malignant hypertensive urgency Acute
[2017-04-20] MEDS: LISINOPRIL 10 MG TAB PO SCH ×2 (09:44→20:11)
[2017-04-20] MEDS: CLOPIDOGREL BISULFATE 75 MG TAB PO SCH (09:44)
[2017-04-20] MEDS: ENOXAPARIN 40 MG/0.4 ML SYR SC SCH (09:44)
[2017-04-20] MEDS: NICOTINE 14 MG/24 HR PATCH TD SCH (09:44)
[2017-04-20] MEDS: THIAMINE HCL 500 MG in NS 500 ML IV SCH (09:44)
[2017-04-20] MEDS: ATORVASTATIN CALCIUM 10 MG TAB PO SCH (09:44)
[2017-04-20] MEDS ORDERED: REGADENOSON 0.4 MG/5 ML SYR IVP ONE (13:57)
[2017-04-20] MEDS: hydrALAZINE 20 MG/ML VIAL IVP PRN (16:20)
--- NOTE | 2017-04-20 16:49 | HOSPPROG ---
Hospitalist Progress Note Objective: Vital Signs Temp Pulse Resp BP Pulse Ox 36.7 C 68 15 170/110 H 93 04/20/17 16:00 04/20/17 16:00 04/20/17 16:00 04/20/17 16:20 04/20/17 16:00 Laboratory Results 04/19/17 05:50 04/19/17 05:50 04/19/17 04/20/17 04/21/17 05:59 05:59 05:59 Intake Total 2605 1500 Output Total 30 450 Balance 2575 1050 PT 11.8 SEC (12.0-15.0) L 04/17/17 08:37 INR 0.85 (0.83-1.16) 04/17/17 08:37 ICD10 Worksheet Patient Problems: Problems Problem Status Onset Malignant hypertensive urgency Acute
[2017-04-20] MEDS ORDERED: diphenhydrAMINE 25 MG CAP PO ONE (16:59)
[2017-04-20] MEDS ORDERED: NITROGLYCERIN 0.4 MG BTL SL PRN (16:59)
[2017-04-20] MEDS ORDERED: FAMOTIDINE 20 MG TAB PO ONE (16:59)
[2017-04-20] MEDS ORDERED: ACETAMINOPHEN 325 MG TAB PO PRN (16:59)
[2017-04-20] MEDS ORDERED: TEMAZEPAM 15 MG CAP PO PRN (16:59)
[2017-04-20] MEDS ORDERED: DIAZEPAM 5 MG TAB PO ONE (16:59)
[2017-04-20] MEDS ORDERED: ASPIRIN EC 325 MG TAB PO ONE (16:59)
[2017-04-20] MEDS ORDERED: NS 1,000 ML IV SCH (17:00)
--- NOTE | 2017-04-20 17:02 | HOSPPROG ---
Hospitalist Progress Note Assessment/Plan: # Non-STEMI- -likely strain due to severe HTN- some CP this am- trop peaked 2.2 Telemetry (personally reviewed and interpreted) sinus rhythm - oxygen saturations 93% on RA -d/w Dr. Frost - stress test with reversible changes - NPO tonight - cath tomorrow # HTN emergency -acute CVA and troponin elevation signifies end organ damage - BP in 160's this am- 1 dose of hydralazine iv overnight -oral lisinopril started -reduce BP 20% per day - current goal tx SBP > 160 # Acute CVA-per neurology suspect embolic - -cont Plavix -no evidence afib - will need outpatient cardiac monitoring # Carpel tunnel -outpatient follow-up with neurology # Pulmonary HTN-may be due to severe HTN -recheck ECHO when BP controlled -further w/u if pulm HTN persists # Tobacco dependence-cessation advised I have discussed the case with Dr. Frost - we will plan for cath tomorrow Subjective: cp Objective: Vital Signs Temp Pulse Resp BP Pulse Ox 36.7 C 68 15 170/110 H 93 04/20/17 16:00 04/20/17 16:00 04/20/17 16:00 04/20/17 16:20 04/20/17 16:00 Laboratory Results 04/19/17 05:50 04/19/17 05:50 04/19/17 04/20/17 04/21/17 05:59 05:59 05:59 Intake Total 2605 1500 Output Total 30 450 Balance 2575 1050 PT 11.8 SEC (12.0-15.0) L 04/17/17 08:37 INR 0.85 (0.83-1.16) 04/17/17 08:37 - Physical Exam Constitutional: no apparent distress Eyes: anicteric sclera Ears, Nose, Mouth, Throat: moist mucous membranes Cardiovascular: regular rate and rhythym Respiratory: no respiratory distress Genitourinary: no bladder fullness Musculoskeletal: No asymmetric calves Neurologic: AAOx3 Psychiatric: interacting appropriately Lymph, Heme, Immunologic: no cervical LAD ICD10 Worksheet Patient Problems: Problems Problem Status Onset Malignant hypertensive urgency Acute
--- NOTE | 2017-04-20 17:25 | CPR ---
[f rep st] NONINVASIVE CARDIAC PROCEDURE REPORT PROCEDURE PERFORMED: Pharmacologic stress test. The patient gave informed consent for a pharmacologic stress test. I cleared it with Neurology today . I wanted to make sure they felt there was no risk to her neurologic status to do an Adenosine stre ss test at this time, and they felt it was safe, and I feel it is safe as well. The patient did have the procedure and tolerated it very well. FINDINGS: Her baseline blood pressure was high at 180/89. Her pressure fell to 164/93 during the pr ocedure. Her baseline EKG shows right bundle branch block, left anterior fascicular block, diffuse n onspecific ST-T changes and she had no significant changes with the pharmacologic test. She had a little bit of chest discomfort. She had no significant shortness of breath. She was impro zuhair within 1 minute of the injection. She had no complications. Nuclear images are pending. /[id number]/MODL
[2017-04-21] MEDS: hydrALAZINE 20 MG/ML VIAL IVP PRN (04:35)
[2017-04-21 05:01] LABS: PLATELET COUNT 148 10^3/uL (150-400)
[2017-04-21 05:09] LABS: INR 0.94 (0.83-1.16); PROTIME(PATIENT) 12.8 SEC (12.0-15.0)
[2017-04-21] MEDS ORDERED: diphenhydrAMINE 25 MG CAP PO ONE ×2 (06:30→07:42)
[2017-04-21] MEDS ORDERED: DIAZEPAM 5 MG TAB PO ONE (06:30)
[2017-04-21] MEDS ORDERED: ASPIRIN EC 325 MG TAB PO ONE ×2 (06:30→07:43)
[2017-04-21] MEDS ORDERED: FAMOTIDINE 20 MG TAB PO ONE (06:30)
[2017-04-21] MEDS ORDERED: FAMOTIDINE 20 MG TAB ONE (07:42)
[2017-04-21] MEDS ORDERED: DIAZEPAM 5 MG TAB ONE (07:43)
--- NOTE | 2017-04-21 07:51 | PDPROPOC ---
Sedation Plan of Care ASA Classification: ASA 1 Mallampati Score: Class 1 Mallampati Reference Image: Patient passed 3-3-2 rule?: Yes
--- NOTE | 2017-04-21 07:53 | PDDXCAT ---
Diagnostic Cath Note - . 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
[2017-04-21] MEDS ORDERED: LIDOCAINE 1% 300 MG/30 ML SDV ONE (07:55)
[2017-04-21] MEDS ORDERED: fentaNYL 100 MCG/2 ML INJ ONE (07:56)
[2017-04-21] MEDS ORDERED: MIDAZOLAM 2 MG/2 ML VIAL ONE (07:56)
[2017-04-21] MEDS ORDERED: IOPAMIDOL (ISOVUE-370) 150 ML BTL IV ONE ×2 (07:56)
--- NOTE | 2017-04-21 08:00 | SOAPPROG ---
SOAP Progress Note Assessment/Plan: Assessment: 1. Hypertension 2. CVA 3. Chest tightness 4. Greater than 40 pack-year smoking history 5. COPD She he has had no more chest tightness. She feels nauseated today and does not feel well. My plan is to do a pharmacologic nuclear stress test before she is discharged if Neurology approved at that. If they are concerned we can't do it as an outpatient. Blood pressure still high today so we with thinking about doing it on Thursday. Will see how she feels with her nausea and how that involves. She is not having an acute coronary event right now. She is not having heart failure right now Her blood pressure is not yet controlled. Neurologically she is improving. I have answered all her questions and reviewed her case with the nurse. I will not be classification control clerk today but my partner Dr. Hernández is Plan: 04/19/17 10:08 04/21/17 07:57 This is the note for my 04/20 visits- I visited the pt 3 times on 04/20 she has an abnl nuc and we will proceed to cath she does have some cp at rest . she has no claudication . she has no sx of chf she is ready for the procedure. reviewed prevention extensivly READER ; please note this is the note for the visits of 04/20/17 Subjective: This is the note re my 04/20 visit pt was visited 3 times . she has had mre cp at rest . it is slight but pressure like no N?V?F?C no cough Objective: Vital Signs Temp Pulse Resp BP Pulse Ox 36.8 C 78 16 156/99 H 94 04/21/17 04:00 04/21/17 04:00 04/21/17 04:00 04/21/17 06:34 04/21/17 04:00 Laboratory Results 04/21/17 04:44 04/21/17 04:44 04/20/17 04/21/17 04/22/17 05:59 05:59 05:59 Intake Total 1500 3700 Output Total 450 200 Balance 1050 3500 PT 12.8 SEC (12.0-15.0) 04/21/17 04:44 INR 0.94 (0.83-1.16) 04/21/17 04:44 Physical Exam - Physical Exam General Appearance: alert Respiratory: lungs clear, rhonchi Cardiac/Chest: regular rate, rhythm, systolic murmur Abdomen: non-tender, soft, No organomegaly Skin: warm/dry Extremities: non-tender, No calf tenderness Neuro/Psych: alert, normal mood/affect ICD10 Worksheet Patient Problems: Problems Problem Status Onset Malignant hypertensive urgency Acute
[2017-04-21] MEDS ORDERED: NITROGLYCERIN 2% 1 GM PACKET ONE ×2 (08:50→08:59)
[2017-04-21] MEDS ORDERED: NITROGLYCERIN/D5W 50 MG/250 ML BOTTLE IV ONE (09:04)
[2017-04-21] MEDS ORDERED: FUROSEMIDE 20 MG/2 ML VIAL ONE (09:18)
--- NOTE | 2017-04-21 11:23 | CPIP ---
[f rep st] INVASIVE CARDIAC PROCEDURE INDICATION: The patient has an abnormal nuclear stress test, has been having anterior chest discomfo rt, and has had an abnormal nuclear stress test. She has risk factors of hypertension and many years smoking history. PROCEDURE PERFORMED: 1. Left heart catheterization. 2. Left and right coronary arteriogram via the right femoral artery with no complications. CONDITION THE END OF STUDY: Excellent. ESTIMATED BLOOD LOSS: Less than 15 cc. FINDINGS: ANGIOGRAPHY: 1. Left main coronary artery is normal. 2. Left anterior descending artery is normal. 3. Circumflex coronary artery is normal. 4. Right coronary artery is normal and dominant. These are very big vessels with excellent flow. LEFT HEART CATHETERIZATION: 1. Left ventricular end-diastolic pressure is 16 mmHg. 2. There was no aortic stenosis. Patient was hypertensive during the procedure and she was given 1 inch of Nitro paste, which did not change her pressure much. She was given a second inch of Nitro paste. Her pressure remained around 180 from a high of 195. She tolerated the procedure well. We stopped the Nitro paste and began IV n itroglycerin and she tolerated that well and her blood pressure came down. She did not have a left ventriculogram due to the high arterial pressures. She has done extremely well. COMPLICATIONS: None. CONCLUSION: This woman does not have significant obstructive coronary artery disease. Her pain symp toms may well represent myocardial ischemia, secondary to demand issues with her significant hyperten abdi. It is certainly not high degree obstructive disease in the epicardial arteries. /[id number]/MODL
--- NOTE | 2017-04-21 11:50 | SOAPPROG ---
SOAP Progress Note Assessment/Plan: Assessment: 1. Hypertension 2. CVA 3. Chest tightness 4. Greater than 40 pack-year smoking history 5. COPD She has had a coronary angiogram. She has no significant obstructive coronary disease. She has great blood flow to her heart at this point time. Her ischemia on the nuclear test and her chest pain syndrome could both be due to \ mismatch of ischemia created by her high demand to generate the blood pressure that she is generating. Her blood pressure this morning is been 195 on multiple occasions. Think we should do an evaluation for secondary hypertension at this time. She is not having any other major issues right now She tells me she is going to stop smoking. Subjective: She had chest pain yesterday. She is not having any chest pain today She has no nausea vomiting She has no fever chills She is not being active at this point. A she has no new complaints. She has had a coronary angiogram today. Objective: Vital Signs Temp Pulse Resp BP Pulse Ox 36.8 C 78 16 156/99 H 94 04/21/17 04:00 04/21/17 04:00 04/21/17 04:00 04/21/17 06:34 04/21/17 04:00 Laboratory Results 04/21/17 04:44 04/21/17 04:44 04/20/17 04/21/17 04/22/17 05:59 05:59 05:59 Intake Total 1500 3700 150 Output Total 450 200 450 Balance 1050 3500 -300 PT 12.8 SEC (12.0-15.0) 04/21/17 04:44 INR 0.94 (0.83-1.16) 04/21/17 04:44 Selected Entries 04/21/17 04/21/17 04/21/17 01:30 04:00 06:34 Blood Pressure 166/89 H 180/109 H 156/99 H Laboratory Tests 04/21/17 04/21/17 04:44 04:44 WBC 6.93 Hct 44.1 Plt Count 148 L APTT 28.1 ICD10 Worksheet Patient Problems: Problems Problem Status Onset Malignant hypertensive urgency Acute
[2017-04-21] MEDS: ATORVASTATIN CALCIUM 10 MG TAB PO SCH (12:20)
[2017-04-21] MEDS: CLOPIDOGREL BISULFATE 75 MG TAB PO SCH (12:20)
[2017-04-21] MEDS: NICOTINE 14 MG/24 HR PATCH TD SCH (12:21)
[2017-04-21] MEDS: THIAMINE HCL 100 MG TAB PO SCH (12:21)
[2017-04-21] MEDS: LISINOPRIL 10 MG TAB PO SCH (12:21)
[2017-04-21] MEDS: ENOXAPARIN 40 MG/0.4 ML SYR SC SCH (12:21)
[2017-04-21] MEDS: amLODIPine BESYLATE 5 MG TAB PO SCH (12:51)
[2017-04-21] MEDS ORDERED: LISINOPRIL 20 MG TAB PO ONE (13:00)
[2017-04-21] MEDS: ACETAMINOPHEN 325 MG TAB PO PRN (13:32)
--- NOTE | 2017-04-21 15:28 | ASMTCMCOM ---
CM Note CM Note Notes: Patient had an angiogram today, no evidence of obstructive coronary disease noted. Patient met with a environmental laboratory technician yesterday. She still does not have any identifiable discharge needs. Case Management available if that changes. Date Signed: 04/21/2017 03:28 PM Electronically Signed By:Chelsea Quevedo RN
[2017-04-21] MEDS ORDERED: IOPAMIDOL (ISOVUE 370) 100 ML BTL IV ONE (16:00)
[2017-04-21 16:29] LABS: CREATINE KINASE 34 IU/L (0-156)
--- NOTE | 2017-04-21 17:01 | HOSPPROG ---
Hospitalist Progress Note Assessment/Plan: # Non-STEMI- -likely strain due to severe HTN- some CP this am- trop peaked 2.2 Telemetry (personally reviewed and interpreted) sinus rhythm - oxygen saturations 93% on RA -d/w Dr. Frost - stress test with reversible changes - NPO - cath today without disease # HTN emergency -acute CVA and troponin elevation signifies end organ damage - BPremain > 170 this am- intermittent hydralazine overnight -contl lisinopril - adding norvasc - consulting nephrology for secondary htn work up # Acute CVA-per neurology suspect embolic - -cont Plavix -no evidence afib - will need outpatient cardiac monitoring # Carpel tunnel -outpatient follow-up with neurology # Pulmonary HTN-may be due to severe HTN -recheck ECHO when BP controlled -further w/u if pulm HTN persists # Tobacco dependence-cessation advised I have discussed the case with Dr. Frost - will call nephrology for HTN Subjective: no cp Objective: Vital Signs Temp Pulse Resp BP Pulse Ox 36.8 C 91 14 133/74 H 94 04/21/17 16:00 04/21/17 16:00 04/21/17 16:00 04/21/17 16:00 04/21/17 16:00 Laboratory Results 04/21/17 04:44 04/21/17 04:44 04/20/17 04/21/17 04/22/17 05:59 05:59 05:59 Intake Total 1500 3700 150 Output Total 450 200 450 Balance 1050 3500 -300 PT 12.8 SEC (12.0-15.0) 04/21/17 04:44 INR 0.94 (0.83-1.16) 04/21/17 04:44 - Physical Exam Constitutional: no apparent distress Eyes: anicteric sclera Ears, Nose, Mouth, Throat: moist mucous membranes Cardiovascular: regular rate and rhythym Respiratory: no respiratory distress Gastrointestinal: normoactive bowel sounds Genitourinary: no bladder fullness Skin: warm Musculoskeletal: No asymmetric calves Neurologic: AAOx3 Psychiatric: interacting appropriately Lymph, Heme, Immunologic: no cervical LAD ICD10 Worksheet Patient Problems: Problems Problem Status Onset Malignant hypertensive urgency Acute
[2017-04-21 17:37] LABS: HEPATITIS C ANTIBODY TOTAL NEGATIVE (NEGATIVE); HIV TYPE 1 AND 2 NEGATIVE (NEGATIVE)
[2017-04-21] MEDS: CARVEDILOL 3.125 MG TAB PO SCH (17:40)
--- NOTE | 2017-04-21 19:51 | GCON ---
[f rep st] CONSULTATION DATE OF CONSULTATION: 04/21/2017 REASON FOR CONSULTATION: Opinion regarding hypertension. HISTORY OF PRESENT ILLNESS: The patient is a very pleasant 66-year-old female with no prior medical history. She has not seen a physician in over 20 years. She was in her usual state of health until about a week ago when she began having some numbness in her right hand and foot, on Thursday, the at work (she works at [employer]) she began having vision changes with lights flashing in her eyes. She was lightheaded and was seeing stars. She was taken to the nurse's station at [employer] and her systolic blood pressure was greater than 200. The squad was called and she was taken to [facility] for further evaluation and management. Due to her symptomatic hypertension, a stroke alert was called, MRI was performed showing 3 punctate stroke areas in her supratentorial cortex. S he was admitted to the hospital. Intravenous antihypertensive medications were initiated and her blo od pressure was brought into the 170s to 180 systolic range. Initial troponin was mildly elevated. However, her troponin increased from 0.048 up to 1.28, peaked at 2.27 and came back down to 1.87. Echocardiogram was performed showing severe concentric left ventricular hypertrophy with an ejection fraction of 68%. She also had severe mitral annular calcifications and moderate aortic insufficiency . She underwent a myocardial stress test which was positive for induced ischemia. Patient underwent cardiac catheterization today that showed no significant coronary artery disease. Currently, she is lying in bed and she says she feels fine. She has not had fevers, chills, nausea, vomiting. She is having no chest pain or shortness of breath. No cough, sputum, hemoptysis, hematem esis, epistaxis, abdominal pain, diarrhea, constipation, melena, hematochezia, blurry vision, double vision, headache, orthopnea, paroxysmal nocturnal dyspnea, palpitations, or syncope. PAST MEDICAL HISTORY: Negative. PAST SURGICAL HISTORY: She had a tonsillectomy. CURRENT MEDICATIONS: Include amlodipine 5 mg a day, lisinopril 40 mg a day, Restoril 15 mg a day, th iamin 100 mg daily, tramadol, Zofran, nitroglycerin, hydralazine 10 mg IV every 6 hours as needed, Pl avix 75 mg a day, Lipitor 10 mg a day, and Tylenol. ALLERGIES: None known. FAMILY HISTORY: Positive for coronary artery disease. Negative for stroke. SOCIAL HISTORY: She is . She has 1 child and 1 grandson. She works for [employer]. She sm okes half a pack a day for about 15 years and drinks about 1-1/2 pints of vodka per week. She does n ot use any recreational drugs. She says she likes to work for fun. REVIEW OF SYSTEMS: A complete 12-point review of systems was performed with the pertinent positives and negatives as per the previous sections. PHYSICAL EXAMINATION: VITAL SIGNS: Blood pressure 177/98, pulse 66, respirations 16, temperature 37 .1 degrees. Urine output 200 cc. GENERAL: She is awake, alert, cooperative and is in no acute dist ress. HEENT: Pupils are reactive to light. Extraocular movements are intact. Mucous membranes are moist. Dentition is poor. NECK: No lymphadenopathy, thyromegaly, or bruit. HEART: Regular. Gra de 1/6 systolic murmur. No rub. No S3. LUNGS: No rales, rhonchi, or wheezes. ABDOMEN: Bowel gaby nds are positive. Soft, nontender, nondistended. I appreciate no masses or bruits. EXTREMITIES: N o edema, cyanosis, or clubbing. NEUROLOGIC: No asterixis. SKIN: No unusual rashes or lesions. LY MPH: No palpable lymphadenopathy or lymphedema. MUSCULOSKELETAL: No effusions or tenderness. LABORATORY: Serum sodium 139, down from 141 on admission. Potassium 4.2, up from 4.0 on admission. Chloride 108, CO2 20, BUN 13, creatinine 0.8, glucose 101, calcium 9.2, AST 28. TSH 3.420. WBC 6.9 ; hemoglobin 15.1, down from 17 on admission; hematocrit 44, down from 50; platelet count 148,000. I NR 0.94. Albumin 2.7. Cholesterol 130, LDL 46, HDL 69. MRI of the brain showed 3 tiny infarcts. Echocardiogram showed severe concentric left ventricular hypertrophy with mitral annular calcificatio n, moderate aortic insufficiency, and an ejection fraction of 68%. Stress test showed stress-induced ischemia, but cardiac catheterization today showed no significant c oronary artery disease. IMPRESSION: 1. Hypertensive emergency. This was manifest by 3 punctate strokes. 2. Stress-induced ischemia on her stress test, but negative for coronary artery disease. 3. Alcohol use. 4. Tobacco use. RECOMMENDATIONS: 1. Will do a secondary workup including a 24-hour urine collection for metanephrines, etc. 2. Check serum metanephrines, aldosterone to renin ratio. 3. Check a CT angiogram of the renal arteries to make sure that we are not dealing with renal artery stenosis. 4. Check her blood pressures in all 4 extremities. 5. Will start some carvedilol 3.125 mg twice daily. 6. Check a urine drug screen. 7. I think we will also evaluate for possible glomerulonephritis, although her creatinine is not natasha vated. She has not had a urinalysis so will start there. She also has habitus that is somewhat marf anoid. Will check pituitary hormones as well. Thank you for allowing me to participate in the care of your patient. If there are any questions, pl ease do not hesitate to contact us. We will be following along with you. /[id number]/MODL
[2017-04-22] MEDS: amLODIPine BESYLATE 5 MG TAB PO SCH (08:07)
[2017-04-22] MEDS: ATORVASTATIN CALCIUM 10 MG TAB PO SCH (08:07)
[2017-04-22] MEDS: ENOXAPARIN 40 MG/0.4 ML SYR SC SCH (08:08)
[2017-04-22] MEDS: LISINOPRIL 40 MG TAB PO SCH (08:08)
[2017-04-22] MEDS: THIAMINE HCL 100 MG TAB PO SCH (08:08)
[2017-04-22] MEDS: CLOPIDOGREL BISULFATE 75 MG TAB PO SCH (08:08)
[2017-04-22] MEDS: NICOTINE 14 MG/24 HR PATCH TD SCH (08:08)
[2017-04-22] MEDS: CARVEDILOL 3.125 MG TAB PO SCH ×2 (08:08→18:34)
--- NOTE | 2017-04-22 08:11 | SOAPPROG ---
SOAP Progress Note Assessment/Plan: Assessment: #hypertensive emergency -no access to medical care >20 years prior to admit, initial BP in 200s -CT head with punctate CVAs -renin/ashley, cortisol, metanephs pending -CTA with no significant renal artery stenosis (30% possible on L) -currenly on coreg 3.125 mg po bid, amlodipine 5mg po daily, lisinopril 40mg po daily-- BP now in 150s-160s which is reasonable for now- would not increase meds today (has prn IV to use if >160s). Did not require IV meds overnight ( last dose early am 04/21) -monitor for contrast nephropathy as had cardiac cath, started lisinopril, and lowering of BP -at risk for BETTE, would hold to check Cr tomorrow and have low threshold to give IVF if not taking po well (Currently pt is) -working on urgent outpt f/u with us in [place] office- will also need PCP established #abnormal myocardial perfusion stress-- Cath 04/21 without significant obstructive disease #AAA noted on CTA- 2.5cm infrarenal-- will need outpt surveillance imaging #EtOH and tobacco abuse I discussed with Dr. Joelle Hong MD [facility] [phone] pager 04/22/17 08:12 04/22/17 09:22 Subjective: Feels ok- denies cp, n/v, dizziness. Cath ok yesterday. Tolerating meds ok- denies any significant side effects. Hungry and wants breakfast. Discussed need for continued outpt f/u, further med adjustments. Objective: Vital Signs Temp Pulse Resp BP Pulse Ox 37.1 C 59 L 14 161/96 H 93 04/22/17 07:18 04/22/17 07:18 04/22/17 07:18 04/22/17 07:18 04/22/17 07:18 Laboratory Results 04/21/17 04:44 04/22/17 03:45 04/21/17 04/22/17 04/23/17 05:59 05:59 05:59 Intake Total 3700 790 Output Total 200 950 Balance 3500 -160 PT 12.8 SEC (12.0-15.0) 04/21/17 04:44 INR 0.94 (0.83-1.16) 04/21/17 04:44 Physical Exam - Physical Exam General Appearance: alert, no apparent distress EENT: other (poor dentition, MMM) Neck: supple Respiratory: lungs clear Cardiac/Chest: regular rate, rhythm Abdomen: normal bowel sounds, non-tender, soft Skin: warm/dry Extremities: other (no edema) Neuro/Psych: alert, normal mood/affect, oriented x 3 ICD10 Worksheet Patient Problems: Problems Problem Status Onset Malignant hypertensive urgency Acute
--- NOTE | 2017-04-22 17:42 | HOSPPROG ---
Hospitalist Progress Note Assessment/Plan: # Non-STEMI- -likely strain due to severe HTN- some CP this am- trop peaked 2.2 Telemetry (personally reviewed and interpreted) sinus rhythm - oxygen saturations 93% on RA -cath without changes - cont plavix, statin and coreg # HTN emergency -acute CVA and troponin elevation signifies end organ damage - BP improved this am- no hydralazine overnight CTA kidneys without significant stenoses -contl lisinopril - adding norvasc - cont coreg - monitor renal function today as high risk for BETTE with new meds and contrast - labs pending # Acute CVA-per neurology suspect embolic - -cont Plavix -no evidence afib - will need outpatient cardiac monitoring # Carpel tunnel -outpatient follow-up with neurology # Pulmonary HTN-may be due to severe HTN -recheck ECHO when BP controlled -further w/u if pulm HTN persists # Tobacco dependence-cessation advised I have discussed the case with Dr. Chicas - we will recheck renal function in am Subjective: denies pain Objective: Vital Signs Temp Pulse Resp BP Pulse Ox 36.9 C 70 18 135/85 H 95 04/22/17 15:13 04/22/17 15:13 04/22/17 15:13 04/22/17 15:13 04/22/17 15:13 Laboratory Results 04/21/17 04:44 04/22/17 16:00 04/21/17 04/22/17 04/23/17 05:59 05:59 05:59 Intake Total 3700 790 Output Total 200 950 Balance 3500 -160 PT 12.8 SEC (12.0-15.0) 04/21/17 04:44 INR 0.94 (0.83-1.16) 04/21/17 04:44 - Physical Exam Constitutional: no apparent distress Eyes: anicteric sclera Ears, Nose, Mouth, Throat: moist mucous membranes Respiratory: no respiratory distress Gastrointestinal: normoactive bowel sounds Genitourinary: no bladder fullness Skin: warm Musculoskeletal: No asymmetric calves Neurologic: AAOx3 Psychiatric: interacting appropriately Lymph, Heme, Immunologic: no cervical LAD ICD10 Worksheet Patient Problems: Problems Problem Status Onset Malignant hypertensive urgency Acute
[2017-04-23 05:09] VITALS: O2SAT 96
[2017-04-23 08:25] VITALS: RESP 18; TEMP 97.9
[2017-04-23] MEDS: CARVEDILOL 3.125 MG TAB PO SCH (08:58)
[2017-04-23 08:59] VITALS: BP 176/99; PULSE 70
[2017-04-23] MEDS: LISINOPRIL 40 MG TAB PO SCH (09:00)
[2017-04-23] MEDS: CLOPIDOGREL BISULFATE 75 MG TAB PO SCH (09:00)
[2017-04-23] MEDS: THIAMINE HCL 100 MG TAB PO SCH (09:00)
[2017-04-23] MEDS: amLODIPine BESYLATE 5 MG TAB PO SCH (09:00)
[2017-04-23] MEDS: ENOXAPARIN 40 MG/0.4 ML SYR SC SCH (09:01)
[2017-04-23] MEDS: ATORVASTATIN CALCIUM 10 MG TAB PO SCH (09:01)
[2017-04-23] MEDS: NICOTINE 14 MG/24 HR PATCH TD SCH (09:01)
--- NOTE | 2017-04-23 09:35 | SOAPPROG ---
SOAP Progress Note Assessment/Plan: Assessment/Plan: Hypertensive emergency: came with SBP > 200, has 3 small punctate CVAs, elevated troponin. BP now improved, not quite at goal but given likely longstanding HTN, would want to lower slowly. - Continue current meds. - Noted that Cr remains stable at 0.8 in face of meds and contrast exposure. - Metanephrines and renin/ashley pending, cortisol ok. - Ok to discharge from nephrology standpoint, pt has an appointment set up for 04/27/17 at 8:30am at our [facility]. - Pt will also need PCP. Proteinuria: pt with 0.5g proteinuria, likely due to uncontrolled HTN, will continue to monitor as outpatient. Thank you for the interesting consult. Nephrology will sign off at this time, please call if you have any additional questions or concerns. Subjective: No acute events overnight. Pt states that she feels well, no LARSEN, CP, dyspnea, swelling in legs. She is hoping to go home today. Objective: Vital Signs Temp Pulse Resp BP Pulse Ox 36.6 C 70 18 176/99 H 96 04/23/17 08:00 04/23/17 08:58 04/23/17 08:00 04/23/17 08:58 04/23/17 08:00 Laboratory Results 04/21/17 04:44 04/23/17 03:50 04/22/17 04/23/17 04/24/17 05:59 05:59 05:59 Intake Total 790 1900 Output Total 950 1150 Balance -160 750 PT 12.8 SEC (12.0-15.0) 04/21/17 04:44 INR 0.94 (0.83-1.16) 04/21/17 04:44 ICD10 Worksheet Patient Problems: Problems Problem Status Onset Malignant hypertensive urgency Acute
--- NOTE | 2017-04-23 11:38 | SOAPPROG ---
ROXY Progress Note Assessment/Plan: Assessment: 1. Hypertension 2. CVA 3. Chest tightness 4. Greater than 40 pack-year smoking history 5. COPD 04/23/17 11:32 1. Hypertension 2. CVA 3. Chest tightness 4. Greater than 40 pack-year smoking history 5. COPD She is doing well right now wants to go home. She tells me she has totally recovered from her stroke. She is going to follow up with her primary care doctors and see her other doctors as well. I can see her in 2-3 to 4 weeks any time she would like. She has my phone number and will call for an appointment when she feels she needs it. I have written her a note to return to work in 2 weeks which is when she feels like she would like to return. I have increased her amlodipine to 10 mg and I want her to take it out at hr of sleep. She is in regular sinus rhythm at this time. She feels great. She wants to go home. I have talked to her hospitalist. And she will be in touch. She is having a completed workup for secondary hypertension the the CT and is negative for any significant disease . Subjective: She feels well today and is eager to go home. She has no chest pain jaw pain arm pain She is not lightheaded or dizzy She has no sequelae from her prior stroke. She feels equal strength. She has no new headaches. No stiff neck She is walking about and feels fine she is not complaining of shortness of breath. She has no orthopnea PND or dyspnea exertion She is having no palpitations. Objective: Vital Signs Temp Pulse Resp BP Pulse Ox 36.6 C 70 18 176/99 H 96 04/23/17 08:00 04/23/17 08:58 04/23/17 08:00 04/23/17 08:58 04/23/17 08:00 Laboratory Results 04/21/17 04:44 04/23/17 03:50 04/22/17 04/23/17 04/24/17 05:59 05:59 05:59 Intake Total 790 1900 Output Total 950 1150 Balance -160 750 PT 12.8 SEC (12.0-15.0) 04/21/17 04:44 INR 0.94 (0.83-1.16) 04/21/17 04:44 Selected Entries 04/23/17 04/23/17 04/23/17 08:00 08:50 08:58 Heart Rate 70 Blood Pressure 171/104 H 160/105 H 176/99 H Laboratory Tests 04/21/17 04/21/17 04/21/17 16:00 16:00 16:00 BUN Creatinine Albumin (PEP) 4.1 Albumin/Globulin Ratio 1.57 Etocf-1-Ctvimdqfh 0.8 Beta Globulins 0.9 Gamma Globulins 0.6 M-Terry NOT DETECTED 25-OH Vitamin D Total < 12.8 L PTH Intact 122.7 H Cortisol AM Sample Hep Bs Antibody NEGATIVE Hepatitis C Antibody NEGATIVE HIV 1&2 Antibody NEGATIVE 04/22/17 04/22/17 03:45 03:45 BUN 15 Creatinine 0.8 Albumin (PEP) Albumin/Globulin Ratio [id number]-[id number] Beta Globulins Gamma Globulins M-Terry 25-OH Vitamin D Total PTH Intact Cortisol AM Sample 11.4 Hep Bs Antibody Hepatitis C Antibody HIV 1&2 Antibody Physical Exam - Physical Exam General Appearance: alert, no apparent distress Neck: full range of motion Respiratory: rhonchi, prolonged expiration Cardiac/Chest: regular rate, rhythm, systolic murmur Abdomen: non-tender, soft, No organomegaly Skin: warm/dry Neuro/Psych: alert, normal mood/affect ICD10 Worksheet Patient Problems: Problems Problem Status Onset Malignant hypertensive urgency Acute
--- NOTE | 2017-04-23 12:26 | SOAPPROG ---
ROXY Progress Note Assessment/Plan: Assessment: 1. Hypertension 2. CVA 3. Chest tightness 4. Greater than 40 pack-year smoking history 5. COPD 04/23/17 11:32 1. Hypertension 2. CVA 3. Chest tightness 4. Greater than 40 pack-year smoking history 5. COPD She is doing well right now wants to go home. She tells me she has totally recovered from her stroke. She is going to follow up with her primary care doctors and see her other doctors as well. I can see her in 2-3 to 4 weeks any time she would like. She has my phone number and will call for an appointment when she feels she needs it. I have written her a note to return to work in 2 weeks which is when she feels like she would like to return. I have increased her amlodipine to 10 mg and I want her to take it out at hr of sleep. She is in regular sinus rhythm at this time. She feels great. She wants to go home. I have talked to her hospitalist. And she will be in touch. She is having a completed workup for secondary hypertension the the CT and is negative for any significant disease . Objective: Vital Signs Temp Pulse Resp BP Pulse Ox 36.6 C 70 18 176/99 H 96 04/23/17 08:00 04/23/17 08:58 04/23/17 08:00 04/23/17 08:58 04/23/17 08:00 Laboratory Results 04/21/17 04:44 04/23/17 03:50 04/22/17 04/23/17 04/24/17 05:59 05:59 05:59 Intake Total 790 1900 Output Total 950 1150 Balance -160 750 PT 12.8 SEC (12.0-15.0) 04/21/17 04:44 INR 0.94 (0.83-1.16) 04/21/17 04:44 ICD10 Worksheet Patient Problems: Problems Problem Status Onset Malignant hypertensive urgency Acute
--- NOTE | 2017-04-23 17:15 | GDS ---
[f rep st] DISCHARGE SUMMARY DISCHARGE DIAGNOSES: 1. Acute cerebrovascular accident. 2. Non-ST elevation myocardial infarction. 3. Hypertensive emergency. 4. Tobacco dependence. 5. Pulmonary hypertension. 6. Carpal tunnel. HISTORY OF PRESENT ILLNESS: This is a 66-year-old female who presents on 04/17/2017, with complaints of right eye blurriness. For details of patient's initial presentation, please see the history and physical dated 04/17/2017. CONSULTATIVE SERVICES: 1. Neurology. 2. Cardiology. 3. Nephrology. PROCEDURES: On 04/21/2017, patient underwent cardiac catheterization that showed no flow-limiting co ronary stenoses. On 04/17/2017, patient had a transthoracic echocardiogram that shows normal LV size , concentric LVH. EF estimated at 68% with diastolic dysfunction. 04/17/2017, patient had an MRI of the brain, which showed 3 tiny acute infarcts suggestive of shower emboli. CTA of the kidneys on , showed no flow-limiting stenoses. HOSPITAL COURSE BY ISSUE: 1. Acute CVA. Patient did have resolution of her right eye symptoms. Was evaluated by Neurology an d felt to have had an acute stroke, was initiated on Plavix therapy, statin therapy, and will be foll owing with outpatient Cardiology for long-term Holter monitoring. Additionally, following with Neuro logy for long-term management of her CVA. 2. Hypertensive emergency. Patient was admitted placed on IV drip for blood pressure control, and u ltimately titrated to oral agents. She was difficult to control. Nephrology was consulted for sandra kumar hypertension workup, which is underway. 3. Patient had CTA of the abdomen that ruled out renal artery stenosis. She has a large battery of laboratories for secondary hypertension, which are pending at the time of her disposition. She will be followed in 4 days' time by Nephrology for her 1st blood pressure and laboratory check. 4. Non ST-elevation [place]. Patient underwent cardiac catheterization which confirmed no flow-limiting stenoses in her coronary arteries. She is being discharged already on Plavix, statin, carvedilol for hypertension and her history of CVA. She will follow in the outpatient setting with Dr. Pietro tavarez for Holter monitoring, as well as blood pressure control. MEDICATIONS AT THE TIME OF DISPOSITION: Please reference the med rec printed on 04/23/2017. FOLLOWUP APPOINTMENTS: 1. Dr. Hong from Nephrology. 2. Dr. Pietro Frost from Cardiology. 3. Dr. Verma from Neurology. PENDING STUDIES: At the time of this dictation include a large number of labs related to her seconda ry hypertension workup. These will be followed by outpatient Nephrology. I spent greater than 30 minutes in the planning and coordination of this discharge. /[id number]/MODL
== END 2017-04-23 11:35 | disposition home or self-care (01) | DRG 64 ==
LOC: EDUNIT# → F2N 11:16 → F2W 04-20 23:12
PROVIDERS: ADMIT Internal Medicine; ATTEND Internal Medicine
PROC: B2111ZZ Fluoroscopy of Multiple Coronary Arteries using Low Osmolar Contrast (ICD-10-PCS; principal; 2017-04-21)
PROC: 4A023N7 Measurement of Cardiac Sampling and Pressure, Left Heart, Percutaneous Approach (ICD-10-PCS; principal; 2017-04-21)
DX: I63.443 Cerebral infarction due to embolism of bilateral cerebellar arteries (principal); I63.421 Cerebral infarction due to embolism of right anterior cerebral artery; I11.9 Hypertensive heart disease without heart failure; I16.1 Hypertensive emergency; I21.4 Non-ST elevation (NSTEMI) myocardial infarction; F17.210 Nicotine dependence, cigarettes, uncomplicated
CPT/HCPCS: 80307; 82024-90; 82088-90; 82384-90; 82530-90; 82947-QW; 83003-90; 83516-90; 83520-90; 83835-90; 84244-90; 84585-90; 92523-GN; 96374; 97161-GP; 97165-GO; A9500; G0472; G0480; J0360; J1644; J1650; J1940; J2060; J2250; J2270; J2405; J2785; J3010; J3411; Q9967

== ENCOUNTER 2017-10-19 09:41 | Observation (INO) | payer OTHER ==
--- NOTE | 2017-10-19 09:59 | EDPHY ---
HPI/HX/ROS/PE/MDM Narrative: CHIEF COMPLAINT: Lightheadedness, fall HISTORY OF PRESENT ILLNESS: The patient is a 67 y/o female arriving with her friend complaining of lightheadedness onset while standing at work this morning with a subsequent fall. She sat down when symptoms persisted, but felt off- balance and fell striking the left side of her head. She denies loss of consciousness, weakness, new paresthesias, or other injuries from the fall. Her friend at bedside did not witness the fall but attended to her soon afterwards and found her pale and sweaty. The patient reports she felt nauseated earlier this morning, but notes she has eaten poorly recently. She currently feels improved. No history of cardiac disease or diabetes. She does not use aspirin or anticoagulants. No fever, chills, chest pain, shortness of breath, palpitations, vomiting, diarrhea, urinary complaints, headache. Patient reports she was admitted to the ICU in March 2017 because "they thought I was having a stroke" and her symptoms today feel vaguely similar. She is unable to provide much information about this visit, but her friend does say she had a normal cardiac catheterization. She's had persistent tingling in her right hand and right foot since that hospitalization. Records from this admission show patient did have a CVA with 3 small infarcts that suggested a shower of emboli, non-STEMI, and pulmonary hypertension. She was discharged on Plavix, statin, and carvedilol with referral to Dr. Frost of cardiology for follow up. REVIEW OF SYSTEMS: Aside from elements discussed in the HPI, a comprehensive 10-point review of systems was reviewed and is negative. PAST MEDICAL HISTORY: Hypertension, CVA and nSTEMI 2017. Prior medical records reviewed including admission 04/17/17 for CVA. FAMILY MEDICAL HISTORY: Denies cardiac disease in family members at a young age. SOCIAL HISTORY: Cigarette smoker. Friend at bedside. PCP: Dr. Zapata in [place]. VITAL SIGNS: Reviewed by me GENERAL: Well-developed, well-nourished, resting comfortably in no respiratory distress. Pleasant. HEENT: Atraumatic. Eyes: No icterus, no injection. Mouth: moist mucous membranes. No erythema or lesions. Poor dentition. Neck: supple with no adenopathy. LUNGS: Clear to auscultation bilaterally but distant, no wheezes, rhonchi or rales. Wet cough initially. CARDIAC: Regular rate and rhythm with occasional ectopic beat, no rubs or gallops, harsh decrescendo systolic murmur. ABDOMEN: Soft, nontender, nondistended, bowel sounds normal. BACK: No CVA tenderness. EXTREMITIES: No trauma. No edema. Range of motion is normal throughout. NEURO: Alert and oriented, grossly nonfocal. SKIN: Warm and dry, no rash. PSYCHIATRIC: Normal mentation, no agitation. Portions of this note were transcribed by a medical records technician. I personally performed a history, physical exam, medical decision making, and confirmed accuracy of information the transcribed note. ED Course: This is a 67 y/o female with a history of CVA, nSTEMI, and hypertensive emergency in March 2017 who presents today after an episode of lightheadedness and subsequent fall at work this morning. She currently feels nearly back to baseline and exam is largely unremarkable apart from harsh decrescendo systolic murmur. Plan for IV, labs including troponin, EKG, chest x- ray. 324mg PO aspirin ordered. The 12 lead EKG was interpreted by myself. Sinus mechanism. Mild anterolateral ST elevation new from EKG 2017. See hard copy and/or "tracemaster" electronic copy for interpretation. POC troponin is normal. Chest x-ray: possible bronchitis. Labs show hyponatremia at 123. Spoke with hospitalist service. Dr. Samuels accepts admission for hyponatremia and further treatment of bronchitis. Reassessed patient and discussed work up and plan for admission. She tells me she does take her Plavix daily and has cut out all salt since her admission after being told to do so. She agrees with plan for admission. MDM: Differential diagnosis of the patient's weakness and syncope was considered including but not limited to electrolyte abnormality, anemia, cardiac ischemia, CVA, spinal cord abnormality, and infectious causes. - Data Points Imaging Results: Chest X-Ray 10/19/17 10:08 Impression: Mild peribronchial thickening suggesting airways disease/bronchitis. Imaging: I viewed and interpreted images myself Laboratory Results: Laboratory Results 10/19/17 10:00 10/19/17 10:00 Medications Given: Discontinued Medications Amlodipine Besylate (Norvasc) 10 mg PO DAILY ENA Stop: 04/18/18 08:59 Last Admin: 10/20/17 10:06 Dose: 10 mg Aspirin (Aspirin) 324 mg PO EDNOW ONE Stop: 10/19/17 10:09 Last Admin: 10/19/17 10:10 Dose: 324 mg Atorvastatin Calcium (Lipitor) 10 mg PO DAILY ENA Stop: 04/18/18 08:59 Last Admin: 10/20/17 10:06 Dose: 10 mg Clopidogrel Bisulfate (Plavix) 75 mg PO DAILY ENA Stop: 04/18/18 08:59 Last Admin: 10/20/17 10:06 Dose: 75 mg Sodium Chloride (Ns) 500 mls @ 1,000 mls/hr IV EDNOW ONE PRN Reason: Protocol Stop: 10/19/17 11:57 Last Admin: 10/19/17 11:37 Dose: 500 mls Sodium Chloride (Ns) 1,000 mls @ 150 mls/hr IV CONT ENA Stop: 04/17/18 12:59 Last Admin: 10/19/17 14:17 Dose: 1,000 mls Sodium Chloride (Salt Tablet) 1,000 mg PO ONCE ONE Stop: 10/19/17 19:10 Last Admin: 10/19/17 20:09 Dose: 1,000 mg Trazodone HCl (Trazodone) 50 mg PO HS ENA Stop: 04/17/18 20:59 Last Admin: 10/19/17 23:14 Dose: Not Given Point of Care Test Results: Chemistry 10/19/17 09:53 POC Troponin I 0.02 ng/mL ng/mL (0.00-0.08) General Time Seen by Provider: 10/19/17 09:54 Initial Vital Signs: Initial Vital Signs Temperature (C) 36.8 C 10/19/17 09:43 Heart Rate 81 10/19/17 09:43 Respiratory Rate 18 10/19/17 09:43 Blood Pressure 137/89 H 10/19/17 09:43 O2 Sat (%) 95 10/19/17 09:43 O2 Delivery Mode Room Air Allergies/Adverse Reactions: No Known Allergies Allergy (Verified 10/19/17 09:44) Home Medications: Medication Instructions Recorded Atorvastatin Calcium [Lipitor 10 10 mg PO DAILY #30 tab 04/23/17 mg (*)] Clopidogrel Bisulfate [Plavix (*)] 75 mg PO DAILY #30 tab 04/23/17 Acetaminophen [Tylenol 325mg (*)] 325 mg PO Q6HRS PRN 10/19/17 amLODIPine BESYLATE [Norvasc 10 mg 10 mg PO DAILY 10/19/17 (*)] traZODone [traZODONE 50MG (*)] 50 mg PO HS 10/19/17 Lisinopril [Zestril 20 mg (*)] 20 mg PO DAILY #30 tab 10/20/17 Departure - Departure Disposition: [facility] Acute Clinical Impression: Hyponatremia, Dizziness Condition: Fair Report Scribed for: Ernestina Walters Report Scribed by: Tabitha Harry Date of Report: 10/19/17 Time of Report: 10:00
[2017-10-19] MEDS ORDERED: ASPIRIN 81 MG CHEWABLE TAB PO ONE (10:08)
[2017-10-19] MEDS ORDERED: ASPIRIN 81 MG CHEWABLE TAB ONE (10:09)
[2017-10-19 10:15] LABS: PLATELET COUNT 302 10^3/uL (150-400)
[2017-10-19] MEDS ORDERED: NS 500 ML IV ONE (11:28)
[2017-10-19] MEDS ORDERED: ACETAMINOPHEN 325 MG TAB PO PRN (12:51)
[2017-10-19] MEDS ORDERED: ONDANSETRON 4 MG/2 ML VIAL IVP PRN (12:51)
[2017-10-19] MEDS ORDERED: NS 1,000 ML IV SCH (13:00)
--- NOTE | 2017-10-19 13:02 | PDGENHP ---
History and Physical History and Physical: CC: Near syncope HISTORY: This patient who felt well when she woke up this morning and has not felt ill recently, was at work when she suddenly began to feel lightheaded this morning. Her work involves standing still at a particular workstation. She developed nausea and sweating. There was no pain or discomfort, palpitations or shortness of breath and no neurologic symptoms otherwise. She went to walk several steps to sit in a chair but became more orthostatic to the point where she actually fell over and landed on her side. She was assisted into a chair by her coworkers where she remained very lightheaded. She did not have loss of consciousness. She was brought into the ER for further evaluation. At this time she feels back to normal. Notably she has 1 prior episode of very similar symptoms of June of this year. At that time she was found to have low blood pressures that were felt to be due to her antihypertensive medicines and the dose of these medicines was decreased. She says she has felt fine since then and has had blood pressures in the normal range. She denies any recent fluid losses since that she drinks she thinks about 30 oz of fluid daily. Notably her blood pressure medicine as a lisinopril/ hydrochlorothiazide combination. She does not use any alcohol having quit drinking several months ago. She does smoke half pack cigarettes daily On review of her previous records here she was admitted to this hospital March 2017 with severe hypertension and some neurologic symptoms. At that time she had evidence of 3 small embolic strokes. There was no atrial fibrillation seen, but she did not have planned loop recorder study and follow- up outpatient. She did have cardiac workup at that time which included echocardiogram with moderate aortic regurgitation and pulmonary hypertension at 49. LV was good overall, and there was some calcific change of the mitral valve which was functioning well. ROS: A comprehensive 10 system review revealed no other significant findings PAST MEDICAL HISTORY: Hypertension Embolic stroke 03/2017; 3 small lesions at that time by MRI, no residual neuro symptoms Angiographically normal coronary arteries March 2017 (myocardial perfusion image findings from that time likely due to artifact) Aortic insufficiency moderate by echocardiogram March 2017 Pulmonary hypertension at 49 Diastolic dysfunction of left ventricle FAMILY MEDICAL HISTORY: Father of colon cancer age 85 Mother of reported old age SOCIAL HISTORY: Former user of Alcohol Ongoing tobacco use 1/2 pack cigarettes per day Single and lives alone 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 I have reviewed the list and ordered appropriate medicines. 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: Sinus Examination: General: alert, oriented, good mentation, relaxed Skin: warm, dry, good color, no rash HEENT: normal Neck: no mass or jvd Resps: relaxed Lungs: clear breath sounds Heart: regular, 2/6 systolic murmur at the base of the heart, no gallop Abdomen: soft, nondistended, nontender, +BS, no mass Upper Extremities: normal Lower Extremities: no edema, warm No Bleeding or bruising Neurologic: normal speech/language, normal acquisition professional, no focal weakness IV site: looks normal LABORATORY DATA: [place] [id number] with predominance of neutrophils otherwise unremarkable CBC Sodium 123, normal renal function, glucose 126, calcium 10.6 with albumin 4.6 RADIOLOGY STUDIES: I reviewed today's chest x-ray image from the ER, this is a PA lat, there is evidence of obstructive lung disease but no other particular abnormalities at this time 12 LEAD EKG: I reviewed the EKG image from the ER today as well as her most recent in March; sinus rhythm is present. There is old right bundle-branch and left anterior physical blocks. New at this time is 1st degree AV block. Nothing that appears ischemic I reviewed her echocardiogram images from March of this year with Dr. Juan Mai. Her aortic valve does have moderate regurgitation but there is no stenosis. Suspect her systolic murmur is due to calcified aortic valve. ASSESSMENT: * NEAR-SYNCOPE * I suspect this is due to combination of dehydration from diuretic use with lisinopril, hot weather, aortic regurgitation, pulmonary hypertension possibly other factors * Hyponatremia may also have contributed * HYPONATREMIA IN A MOST LIKELY MILDLY HYPOVOLEMIC PATIENT ON DIURETIC MEDICINE * Strongly suspect her diuretic use is the major cause of this at present * HISTORY OF EMBOLIC STROKE EPISODE MARCH 2017 * No AFib was seen during her hospital admission, but she has not had any outpatient cardiac monitoring which has actually been discussed at that time * PULMONARY HYPERTENSION, I SUSPECT IS DUE TO COPD FROM SMOKING BUT THIS HAS NOT BEEN DIAGNOSED FOR HER AT PRESENT * Ongoing tobacco use at this time * MODERATE AORTIC REGURGITATION WITHOUT EVIDENCE OF HEART FAILURE PLANS: * Will start with Obs status at this time but may need to change to inpatient depending on progress * Will attempt to hydrate her with saline while holding her diuretic, but will need to follow sodium closely to see that she does improve; oral fluid restriction at this time * Would not have her continue her hydrochlorothiazide at home but treat her blood pressure with lisinopril and follow closely with primary care * Due to her history of embolic stroke she should have outpatient bus driver/monitor for possible AFib which will also monitor here; I did review with Brice Rasmussen of Cardiology and he will set up for a loop recorder tomorrow * Would strongly recommend smoking cessation with her pulmonary hypertension and suspected COPD I have reviewed the patient's case in detail with Dr. Juan Mai I have reviewed the patient's past medical records as part of this assessment, including physician records, lab data, EKGs, echocardiogram, angiography, MRI brain scan images
[2017-10-19] MEDS ORDERED: SODIUM CHLORIDE 1,000 MG TAB PO ONE (19:09)
[2017-10-19] MEDS ORDERED: traZODone 50 MG TAB PO SCH (21:00)
[2017-10-20] MEDS ORDERED: CLOPIDOGREL BISULFATE 75 MG TAB PO SCH (09:00)
[2017-10-20] MEDS ORDERED: ATORVASTATIN CALCIUM 10 MG TAB PO SCH (09:00)
[2017-10-20 11:09] VITALS: BP 110/68
--- NOTE | 2017-10-20 13:52 | PDDCSUM ---
Discharge Summary Discharge Summary: Admission Date: 10/19/2017 Discharge Date: 10/20/2017 Admission/Discharge Diagnoses: Hyponatremia, Dizziness Consults: Cardiology Procedures: CXR Followup: F/u with PCP in next week to repeat Na levels Hospital Course: * NEAR-SYNCOPE * I suspect this is due to combination of dehydration from diuretic use with lisinopril, hot weather, aortic regurgitation, pulmonary hypertension possibly other factors * Hyponatremia may also have contributed * HYPONATREMIA IN A MOST LIKELY MILDLY HYPOVOLEMIC PATIENT ON DIURETIC MEDICINE * Strongly suspect her diuretic use is the major cause of this at present, s/p IVF as an IP and will d/c HCTZ on discharge * HISTORY OF EMBOLIC STROKE EPISODE MARCH 2017 * No AFib was seen during her hospital admission, but she has not had any outpatient cardiac monitoring which has actually been discussed at that time, will place 30 event monitor as an OP, cardiology aware * PULMONARY HYPERTENSION, I SUSPECT IS DUE TO COPD FROM SMOKING BUT THIS HAS NOT BEEN DIAGNOSED FOR HER AT PRESENT * Ongoing tobacco use at this time * MODERATE AORTIC REGURGITATION WITHOUT EVIDENCE OF HEART FAILURE Time Spent on discharge >35 minutes with >50% of time spent on education and counseling of patient and family
--- NOTE | 2017-10-20 20:30 | CPEKG ---
Test Reason : OPEN Blood Pressure : / mmHG Vent. Rate : 081 BPM Atrial Rate : 082 BPM P-R Int : 229 ms QRS Dur : 127 ms QT Int : 408 ms P-R-T Axes : 031 -79 042 degrees QTc Int : 474 ms Sinus rhythm Prolonged ME interval Probable left atrial enlargement RBBB and LAFB Left ventricular hypertrophy Minimal ST elevation, anterolateral leads Confirmed by Ernestina Walters ([id number]) on 10/20/2017 8:29:58 PM Referred By: Confirmed By:Ernestina Walters
[2017-10-21] MEDS ORDERED: LISINOPRIL 20 MG TAB PO SCH (09:00)
== END 2017-10-20 13:57 | disposition home or self-care (01) ==
LOC: EDUNIT# → UNDOADMOB 11:11 → F2W 11:11 → UNDOADMOB 11:59 → F2W 11:59
PROVIDERS: ADMIT Internal Medicine; ATTEND Internal Medicine
DX: E87.1 Hypo-osmolality and hyponatremia (principal); R42 Dizziness and giddiness; F17.200 Nicotine dependence, unspecified, uncomplicated
CPT/HCPCS: 71046; 93005; 99285; G0378; 84484-PO

== ENCOUNTER 2018-03-08 10:01 | Observation (INO) | payer OTHER ==
[2018-03-08] MEDS ORDERED: BACITRACIN IRRIGATION/NS 50,000 UNITS/1,000 ML BTL IRR ONE (10:28)
[2018-03-08] MEDS ORDERED: NS 1,000 ML IV ONE (10:28)
[2018-03-08] MEDS ORDERED: ceFAZolin 2 GM/DEXTROSE 100 ML IV ONE (10:28)
[2018-03-08 11:08] LABS: PLATELET COUNT 212 10^3/uL (150-400)
--- NOTE | 2018-03-08 11:18 | CPEKG ---
Test Reason : OPEN Blood Pressure : / mmHG Vent. Rate : 065 BPM Atrial Rate : 064 BPM P-R Int : 195 ms QRS Dur : 124 ms QT Int : 435 ms P-R-T Axes : 047 -77 026 degrees QTc Int : 453 ms Sinus rhythm RBBB and LAFB Confirmed by Teofilo Paul ([id number]) on 03/08/2018 11:18:32 AM Referred By: Confirmed By:Teofilo Paul
--- NOTE | 2018-03-08 11:31 | PDGENHP ---
History & Physical Chief Complaint: Pre-syncope History of Present Illness: Pre-syncopal event 09/2017 with several brief runs of WCT noted on subsequent telemetry and extended ECG monitor. Relevant Physical Exam: General: A&Ox4, no apparent distress. Respiratory: CTA. Cardiac: Regular rate and rhythm, S1, S2. Extremities: Pulses 2+ bilaterally, no edema Cardiorespiratory Assessment: Proceed with EPS. Will also plan for ICD implant if sustained VT is induced. She has consented to blood products PRN for life sustaining measures only.
[2018-03-08 11:34] LABS: INR 0.87 (0.83-1.16)
[2018-03-08] MEDS ORDERED: LIDOCAINE 1% 300 MG/30 ML SDV ONE (14:28)
[2018-03-08] MEDS ORDERED: HEPARIN 10,000 UNIT/10 ML MDV (1,000 UNIT/ML) ONE (14:29)
[2018-03-08] MEDS ORDERED: ISOPROTERENOL HCL/D5W 0.2 MG/50 ML BAG IV ONE ×2 (14:29→16:18)
[2018-03-08] MEDS ORDERED: BUPIVACAINE 0.75% 10 ML SDV ONE (14:29)
[2018-03-08] MEDS ORDERED: MIDAZOLAM 2 MG/2 ML VIAL IVP ONE (14:32)
[2018-03-08] MEDS ORDERED: MIDAZOLAM 2 MG/2 ML VIAL ONE (14:34)
--- NOTE | 2018-03-08 14:35 | PDANEPAE ---
ANE Past Medical History - Cardiovascular History Hx Hypertension: Yes Hx Arrhythmias: Yes Hx Chest Pain: No Hx Coronary Artery / Peripheral Vascular Disease: No Hx CHF / Valvular Disease: No - Pulmonary History Hx COPD: No Hx Asthma/Reactive Airway Disease: No Hx Recent Upper Respiratory Infection: No Hx Oxygen in Use at Home: No Hx Sleep Apnea: No - Endocrine History Hx Diabetes: No Obesity: no - Chronic Pain History Chronic Pain: No ANE Review of Systems Review of Systems: ANE Patient History - Allergies Allergies/Adverse Reactions: No Known Allergies Allergy (Verified 10/19/17 09:44) - Home Medications Home medications: home medication list seen and reviewed Home Medications: Acetaminophen [Tylenol 325mg (*)] 650 mg PO DAILY PRN 10/19/17 [Last Taken 10/19] amLODIPine BESYLATE [Norvasc 10 mg (*)] 10 mg PO HS 10/19/17 [Last Taken ] Lisinopril [Zestril 20 mg (*)] 20 mg PO HS 03/08/18 [Last Taken 03/07/18] Metoprolol Tartrate [Lopressor 25 mg (*)] 25 mg PO BID 03/08/18 [Last Taken 11/11] - NPO status NPO Status: no food or drink >8 hours - Anes Hx Anes Hx: no prior problems - Smoking Hx Smoking Status: Current every day smoker (1/2 packs/day) - Family Anes Hx Family Anes Hx: neg - N/A ANE Labs/Vital Signs - Labs Result Diagrams: 03/08/18 09:05 03/08/18 09:05 - Vital Signs Height: 175 cm Weight: 65.8 kg ANE Physical Exam - Airway Neck exam: FROM Mallampati Score: Class 2 Mouth exam: poor dentition - Pulmonary Pulmonary: no respiratory distress, no rales or rhonchi - Cardiovascular Cardiovascular: regular rate and rhythym, no murmur, rub, or gallop - ASA Status ASA Status: III ANE Anesthesia Plan Anesthesia Plan: MAC
[2018-03-08] MEDS ORDERED: fentaNYL 100 MCG/2 ML INJ ONE (14:40)
[2018-03-08] MEDS ORDERED: PROPOFOL 200 MG/20 ML VIAL ONE ×4 (14:40→16:04)
[2018-03-08] MEDS ORDERED: PROMETHAZINE HCL 25 MG/ML INJ IVP PRN (15:57)
[2018-03-08] MEDS ORDERED: ACETAMINOPHEN 500 MG TAB PO PRN (15:57)
[2018-03-08] MEDS ORDERED: HYDROCODONE/APAP 5/325 TAB PO PRN (15:57)
[2018-03-08] MEDS ORDERED: fentaNYL 100 MCG/2 ML INJ IVP PRN (15:57)
[2018-03-08] MEDS ORDERED: NS 500 ML IV PRN (15:57)
[2018-03-08] MEDS ORDERED: ONDANSETRON 4 MG/2 ML VIAL IVP PRN (15:57)
[2018-03-08] MEDS ORDERED: NALOXONE HCL 0.4 MG/ML INJ IVP PRN (15:57)
[2018-03-08] MEDS ORDERED: ROCURONIUM 50 MG/5 ML VIAL ONE ×2 (16:06→16:52)
[2018-03-08] MEDS ORDERED: ONDANSETRON 4 MG/2 ML VIAL ONE (16:20)
[2018-03-08] MEDS ORDERED: SUGAMMADEX SODIUM 200 MG/2 ML VIAL IVP ONE (17:12)
--- NOTE | 2018-03-08 17:24 | EPPROC ---
Electrophysiology Procedure Note: ELECTROPHYSIOLOGIC STUDY OF FOCAL ATRIAL TACHYCARDIA PROCEDURES PERFORMED: 1. EP evaluation with RA/RV/LA pace/record, with arrhythmia induction 2. EP evaluation with RA/RV pace record, insert/reposition catheter, with arrhythmia induction 3. 3D mapping 4. Fluoroscopy INDICATION: Wide complex tachycardia, syncope Catheters and anesthesia: The patient arrived in the Electrophysiology Laboratory in the fasting state. The right clavicular region, right groin, and left groin area were prepped and draped in the usual sterile manner. Anesthesiologist Dr. Alhaji Carnes administered sedation followed by general anesthesia. Appropriate non-invasive blood pressure, pulse oximetry and end-tidal CO2 monitoring was established. All catheters were placed percutaneously using the modified Seldinger technique , and advanced into position under fluoroscopic guidance. One #7 Bhutanese deflectable octapolar electrode catheter was advanced to the His-bundle position via the left femoral vein (2mm spacing; except the proximal ring which was 25cm from the tip used for unipolar recordings). One #7 Bhutanese deflectable catheter with 10 pairs of electrodes was placed via the left femoral vein into the coronary sinus. Programmed stimulation was performed from the right atrium, left atrium ( coronary sinus) and right ventricle. Parahisian pacing demonstrated VA block. Heparin was administered to keep ACT > 200 seconds. Programmed stimulation of V did not induce any ventricular arrhythmias. Programmed stimulation of right atrium during infusion of isoproterenol 2 mcg/ min induced an atrial tachycardia CL 280-320 ms with intermittent LBBB aberrancy. AV dissociation was present at baseline. Patient was intubated. High resolution mapping of the atrial tachycardia was done using Pentaray catheter. Following this, a #7 Bhutanese mapping catheter was introduced into the right atrium and used for mapping AT . Mobi sheath was used. A 3D mapping system (Carto) was used. A detailed 3D map of the right atrium and coronary sinus showed earliest atrial activation along the fast AV suki pathway area. Therefore no ablation was performed. The catheters were removed. Sheaths were removed in the EP lab after applying subcutaneous purse string suture. The patient was transferred to the cardiovascular holding area in stable condition. There were no apparent complications. RESULTS A. Spontaneous Intervals: SCL 810 ms AH 75 ms HV 50 ms B. Antegrade AV suki function (decremental pacing) Pre ablation FPERP 400 ms SPERP 390 ms WBB CL 380 ms C. Retrograde AV suki function (decremental pacing) VA block CONCLUSIONS: 1. Focal atrial tachycardia arising in the fast AV suki pathway area. Intermittent aberrant conduction to ventricles during atrial tachycardia. 2. Ablation not performed due to risk of AV block. 3. No inducible ventricular tachycardia. 4. No apparent complications. PLAN Start propafenone. Consider ablation with high risk of AV block if antiarrhythmics fail. Patient Problems: Problems Problem Status Onset Malignant hypertensive urgency Acute Hyponatremia Acute Dizziness Acute
--- NOTE | 2018-03-08 17:39 | POSTANESTH ---
Post Anesthetic Evaluation Cardiovascular Status: Normal, Stable, Similar to Pre-Op Cond Respiratory Status: Normal, Stable, Similar to Pre-op Cond. Level of Consciousness/Mental Status: Can Participate in Eval, Alert and Oriented Pain Control: Adequate, Prn Tx Ordered Nausea/Vomiting Control: Adequate, Prn Tx Ordered Complications Possibly Related to Anesthesia: None Noted
[2018-03-08] MEDS ORDERED: LISINOPRIL 20 MG TAB PO SCH (21:00)
[2018-03-08] MEDS: METOPROLOL TARTRATE 25 MG TAB PO SCH (21:11)
[2018-03-08] MEDS: PROPAFENONE HCL SR 225 MG CAP PO SCH (21:12)
[2018-03-09 08:23] VITALS: BP 132/88
[2018-03-09] MEDS: METOPROLOL TARTRATE 25 MG TAB PO SCH (08:42)
[2018-03-09] MEDS: PROPAFENONE HCL SR 225 MG CAP PO SCH (08:43)
[2018-03-09] MEDS ORDERED: CLOPIDOGREL BISULFATE 75 MG TAB PO SCH (09:00)
[2018-03-09] MEDS ORDERED: ATORVASTATIN CALCIUM 10 MG TAB PO SCH (09:00)
--- NOTE | 2018-03-09 11:01 | CPEKG ---
Test Reason : OPEN Blood Pressure : / mmHG Vent. Rate : 075 BPM Atrial Rate : 075 BPM P-R Int : 215 ms QRS Dur : 119 ms QT Int : 426 ms P-R-T Axes : 039 -82 063 degrees QTc Int : 476 ms Sinus rhythm Borderline prolonged DE interval Incomplete RBBB and LAFB Confirmed by Teofilo Paul ([id number]) on 03/09/2018 11:01:22 AM Referred By: Confirmed By:Teofilo Paul
--- NOTE | 2018-03-09 11:02 | CPEKG ---
Test Reason : OPEN Blood Pressure : / mmHG Vent. Rate : 062 BPM Atrial Rate : 062 BPM P-R Int : 198 ms QRS Dur : 124 ms QT Int : 445 ms P-R-T Axes : 046 -82 039 degrees QTc Int : 452 ms Sinus rhythm RBBB and LAFB Confirmed by Teofilo Paul ([id number]) on 03/09/2018 11:02:15 AM Referred By: Confirmed By:Teofilo Paul
--- NOTE | 2018-03-09 15:19 | ASDISCHSUM ---
Discharge Information Plan Status:Home with No Needs Medically Cleared to Leave:03/08/2018 Discharge Date:03/09/2018 11:19 AM CM D/C Disposition:Home, Routine, Self-Care ADT D/C Disposition:Home, Routine, Self-Care Projected Discharge Date:03/09/2018 11:19 AM Transportation at D/C: Discharge Delay Reason: Follow-Up Date:03/09/2018 11:19 AM Discharge Slot: Final Diagnosis: Placement Information Patient Contact Information Contact Name:SANDYJOSELUISILDEFONSO Relationship:Friend Address: Work Phone: City: [facility] Phone: State/[employer] Code: Email: Financial Information Financial Class:HMO and PPO Plans Primary Plan Desc:[employer] Primary Plan Number:[id number] Secondary Plan Desc: Secondary Plan Number: Assessment Information Intervention Information
--- NOTE | 2018-03-09 18:52 | GDS ---
SUPERVISING DOCUMENT PREPARATION SPECIALIST: Nate Babb MD. ADMISSION DIAGNOSES: 1. Wide-complex tachycardia. 2. Presyncope, syncope DISCHARGE DIAGNOSES: 1. Atrial tachycardia. PROCEDURES PERFORMED DURING HOSPITALIZATION: 1. Electrophysiology study. 2. Electrocardiogram. HOSPITAL COURSE: The patient presented 03/08/2018 for electrophysiology study for further evaluation of wide-complex tachycardia noted on recent telemetry and event monitor following a syncopal event 09/2017. She underwent electrophysiology study with Dr. Nate Babb without inducible ventricular or life-threatening arrhythmias. She did have inducible focal atrial tachycardia arising in the fast AV suki pathway area with intermittent aberrant conduction to the ventricles during atrial tachycardia. Ablation was not performed due to the risk of AV block and there were no apparent complications during the EP study. She was started on propafenone and she has done very well overnight in the postprocedure setting. She is appropriate and stable for discharge home today. CURRENT PHYSICAL EXAMINATION: GENERAL: She is alert and oriented x4. No apparent distress. VITAL SIGNS: Blood pressure 122/82, SpO2 90% on room air, temp 36.9, heart rate 62, respiratory rate 16. RESPIRATORY: Lungs are clear to auscultation without adventitious breath sounds. CARDIAC: Normal S1, S2. No S3, S4, or murmurs. Rhythm is regular. ABDOMEN: Normoactive bowel sounds times all 4 quadrants. No masses or tenderness. Abdomen is soft. SKIN: [place] , warm, dry without cyanosis, clubbing, or peripheral edema. EXTREMITIES: Right pursestring suture removed intact without evidence of hematoma, redness, oozing, swelling, or warmth. Pulses are 2+ bilaterally, no edema. LABORATORY STUDIES: Drawn today. BMP stable compared to preprocedure. DISCHARGE DISPOSITION: Patient was discharged home in stable condition. She is under activity instructions as below. DISCHARGE MEDICATIONS: Please see discharge medication reconciliation sheet for full details. Please note, the patient has been started on propafenone sustained release 225 mg twice daily. DISCHARGE INSTRUCTIONS: Post-electrophysiology study instructions reviewed with patient in detail. We discussed activity restrictions including lifting no more than 10 pounds and avoidance of submerged bathing for 10 days. She will get up and walk around every 45 minutes for 45 days. We also reviewed bleeding precautions, medication compliance, monitoring for signs and symptoms of infection, and monitoring for sustained arrhythmia. At the time of discharge, she verbalizes understanding regarding all discharge instructions without questions or concerns. She has a followup visit scheduled with Dr. Babb in 4 weeks. She will contact our clinic with any new or concerning symptoms prior to her upcoming visit. /[id number]/MODL MTDD
== END 2018-03-09 11:19 | disposition home or self-care (01) ==
LOC: FCATH 10:01 → EDSTATUS 14:00 → F2N 17:16 → F2W 18:38
PROVIDERS: ADMIT Internal Medicine Cardiovascular Disease; ATTEND Internal Medicine Cardiovascular Disease
PROC: 4A023FZ Measurement of Cardiac Rhythm, Percutaneous Approach (ICD-10-PCS; principal; 2018-03-08)
PROC: 02K83ZZ Map Conduction Mechanism, Percutaneous Approach (ICD-10-PCS; principal; 2018-03-08)
PROC: B2161ZZ Fluoroscopy of Right and Left Heart using Low Osmolar Contrast (ICD-10-PCS; principal; 2018-03-08)
PROC: 5A1213Z Performance of Cardiac Pacing, Intermittent (ICD-10-PCS; principal; 2018-03-08)
DX: I47.1 Supraventricular tachycardia (principal)
CPT/HCPCS: 93005; 93613; 93620; 93621; 93623; G0378; C1731; C1732; C1766; J0690; J1644; J2250; J2405; J2704; J3010

== ENCOUNTER 2018-05-24 08:48 | Emergency (ER) | payer OTHER ==
[2018-05-24 09:03] LABS: PLATELET COUNT 198 10^3/uL (150-400)
--- NOTE | 2018-05-24 09:36 | EDPHY ---
H & P Stated Complaint: pre syncopal Time Seen by Provider: 05/24/18 08:51 HPI/ROS: CHIEF COMPLAINT: Near syncope HISTORY OF PRESENT ILLNESS: 68-year-old female presents after a near syncopal episode. 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 She then became sweaty and saw spots in her vision. She sat down and the episode resolved. She did not faint or fall. No prior history of similar symptoms or syncopal episodes. No chest pain or shortness of breath. She ate breakfast this morning and slept normally. REVIEW OF SYSTEMS: complete 10 point ROS reviewed and is negative except for the noted elements in the HPI - Medical/Surgical History Hx Asthma: No Hx Chronic Respiratory Disease: No Hx Diabetes: No Hx Cardiac Disease: No Hx Renal Disease: No Hx Cirrhosis: No Hx Alcoholism: No Hx HIV/AIDS: No Hx Splenectomy or Spleen Trauma: No Other PMH: hypertension, hyperlipidemia, tonsilectomy, tia, heart cath 1 yr ago , no stents - Social History Smoking Status: Current every day smoker - Physical Exam Exam: General Appearance: Alert, pleasant Eyes: Pupils equal and round, no conjunctival pallor ENT, Mouth: Mucous membranes moist Neck: Normal inspection Respiratory: Lungs are clear to auscultation Cardiovascular: Regular rate and rhythm Gastrointestinal: Abdomen is soft and nontender Neurological: Alert, oriented x3, cranial nerves II through XII intact, motor 5 /5, grossly intact Skin: Warm and dry Extremities: Normal inspection Psychiatric: Mood and affect normal Constitutional: Initial Vital Signs Temperature (C) 36.5 C 05/24/18 08:51 Heart Rate 57 L 05/24/18 08:51 Respiratory Rate 16 05/24/18 08:51 Blood Pressure 167/74 H 05/24/18 08:51 O2 Sat (%) 96 05/24/18 08:51 O2 Delivery Mode Room Air Allergies/Adverse Reactions: No Known Allergies Allergy (Verified 05/24/18 08:51) Home Medications: Medication Instructions Recorded Atorvastatin Calcium [Lipitor 10 10 mg PO DAILY #30 tab 04/23/17 mg (*)] Clopidogrel Bisulfate [Plavix (*)] 75 mg PO DAILY #30 tab 04/23/17 Acetaminophen [Tylenol 325mg (*)] 650 mg PO DAILY PRN 10/19/17 amLODIPine BESYLATE [Norvasc 10 mg 10 mg PO HS 10/19/17 (*)] Lisinopril [Zestril 20 mg (*)] 20 mg PO HS 03/08/18 Metoprolol Tartrate [Lopressor 25 25 mg PO BID 03/08/18 mg (*)] Propafenone HCl Sr [Rythmol Sr 225 mg PO Q12HRS #30 cap 03/09/18 225mg (*)] Medical Decision Making - Diagnostics EKG Interpretation: EKG interpreted by me reveals 1st degree AVB, rate 54, right bundle branch block , LAFB. Interpretation: Abnormal EKG ED Course/Re-evaluation: Patient presents with a syncopal episode related to prolonged standing. The episode was transient and she now feels back to normal. Stat EKG reveals no evidence of ischemia or dysrhythmia. She has a bifascicular block on EKG, will place on cardiac specialist and observe. Stable and asymptomatic throughout her emergency department stay. diesel instructor revealed normal sinus rhythm throughout. IV normal saline 500 mL L given. She ambulated with steady gait. She will follow up with primary care physician. Return to the emergency department for recurrent symptoms or any concerns. Differential Diagnosis: Differential diagnosis includes though is not limited to cardiac dysrhythmia, CVA, TIA, GI bleed, sepsis, hypoglycemia. - Data Points Laboratory Results: Laboratory Results 05/24/18 Unknown 05/24/18 Unknown 05/24/18 05/24/18 05/24/18 Unknown Unknown 09:08 WBC 11.78 10^3/uL H 10^3/uL (3.80-9.50) RBC 5.18 10^6/uL 10^6/uL (4.18-5.33) Hgb 15.5 g/dL g/dL (12.6-16.3) Hct 46.9 % % (38.0-47.0) MCV 90.5 fL fL (81.5-99.8) MCH 29.9 pg pg (27.9-34.1) MCHC 33.0 g/dL g/dL (32.4-36.7) RDW 12.8 % % (11.5-15.2) Plt Count 198 10^3/uL 10^3/uL (150-400) MPV 9.2 fL fL (8.7-11.7) Neut % (Auto) 72.2 % % (39.3-74.2) Lymph % (Auto) 12.3 % L % (15.0-45.0) [place] % (Auto) 9.0 % % (4.5-13.0) Eos % (Auto) 4.9 % % (0.6-7.6) Baso % (Auto) 0.8 % % (0.3-1.7) Nucleat RBC Rel Count 0.0 % % (0.0-0.2) Absolute Neuts (auto) 8.50 10^3/uL H 10^3/uL (1.70-6.50) Absolute Lymphs (auto) 1.45 10^3/uL 10^3/uL (1.00-3.00) Absolute Monos (auto) 1.06 10^3/uL H 10^3/uL (0.30-0.80) Absolute Eos (auto) 0.58 10^3/uL H 10^3/uL (0.03-0.40) Absolute Basos (auto) 0.10 10^3/uL 10^3/uL (0.02-0.10) Absolute Nucleated RBC 0.00 10^3/uL 10^3/uL (0-0.01) Immature Gran % 0.8 % % (0.0-1.1) Immature Gran # 0.09 10^3/uL 10^3/uL (0.00-0.10) Sodium 135 mEq/L mEq/L (135-145) Potassium 5.4 mEq/L H mEq/L (3.5-5.2) Chloride 101 mEq/L mEq/L (97-110) Carbon Dioxide 19 mEq/l L mEq/l (22-31) Anion Gap 15 mEq/L H mEq/L (6-14) BUN 16 mg/dL mg/dL (7-23) Creatinine 1.0 mg/dL mg/dL (0.6-1.0) Estimated GFR 55 Glucose 82 mg/dL mg/dL (70-100) Calcium 10.0 mg/dL mg/dL (8.5-10.4) POC Troponin I 0.00 ng/mL ng/mL (0.00-0.08) Medications Given: Discontinued Medications Sodium Chloride (Ns) 500 mls @ 1,000 mls/hr IV EDNOW ONE PRN Reason: Protocol Stop: 05/24/18 10:08 Last Admin: 05/24/18 09:51 Dose: 500 mls Point of Care Test Results: Chemistry 05/24/18 09:08 POC Troponin I 0.00 ng/mL ng/mL (0.00-0.08) Departure - Departure Disposition: Home, Routine, Self-Care Clinical Impression: Near syncope Condition: Good Instructions: Near Syncope (ED) Additional Instructions: Return for recurrent symptoms or any concerns. Referrals: Andrew Zapata [Primary Care Provider] - 2-3 days, call for appt.
[2018-05-24] MEDS ORDERED: NS 500 ML IV ONE (09:39)
--- NOTE | 2018-05-24 10:06 | CPEKG ---
Test Reason : OPEN Blood Pressure : / mmHG Vent. Rate : 054 BPM Atrial Rate : 053 BPM P-R Int : 249 ms QRS Dur : 153 ms QT Int : 494 ms P-R-T Axes : 010 -82 021 degrees QTc Int : 469 ms Sinus rhythm First degree AVB RBBB and LAFB Confirmed by Ernestina Jennings ([id number]) on 05/24/2018 10:05:47 AM Referred By: Ernestina Jennings Confirmed By:Ernestina Jennings
[2018-05-24 10:28] VITALS: BP 160/102
== END 2018-05-24 10:40 | disposition home or self-care (01) ==
LOC: EDUNIT#
DX: R55 Syncope and collapse (principal); E86.9 Volume depletion, unspecified
CPT/HCPCS: 84484-ER